=== PATIENT | female | born 1940 | race African-American/Black ===

== ENCOUNTER 2017-10-26 10:44 | Inpatient (IN) ==
[2017-10-26] MEDS ORDERED: Sodium Chlor 0.9% Inj 500 ML IV.SIG ONE ×3 (11:22→12:24)
[2017-10-26 11:31] LABS: Baso % (Auto) 0.1 % (0.0-2.0); Eos % (Auto) 0.2 % (0.0-4.0); Hemoglobin 12.6 gm/dL (11.6-15.3); Lymph # (Auto) 0.9 th/mm3 (1.0-4.8); Lymph % (Auto) 4.7 % (9.0-44.0); Mean Corpuscular HGB Conc 32.4 % (32.0-36.0); Mean Corpuscular Hemoglobin 29.5 pg (27.0-34.0); Mean Platelet Volume 8.5 fL (7.0-11.0); Mono # (Auto) 1.1 th/mm3 (0.0-0.9); Mono % (Auto) 5.7 % (0.0-8.0); Neut # (Auto) 17.1 th/mm3 (1.8-7.7); Neut % (Auto) 89.3 % (16.0-70.0); Platelet Count 115 th/mm3 (150-450); Red Blood Count 4.29 mil/mm3 (4.00-5.30); Red Cell Distribution Width 15.3 % (11.6-17.2); White Blood Count 19.2 th/mm3 (4.0-11.0)
--- NOTE | 2017-10-26 11:31 | ED ---
HPI General Chief Complaint: Altered Mental Status Stated Complaint: Blood Sugar Time Seen by Provider: 10/26/17 11:14 Source: EMS, RN notes reviewed and old records reviewed Mode of arrival: EMS Limitations: altered mental status History of Present Illness HPI narrative: 77 yo female here for AMS. Related Data Allergies Allergy/AdvReac Type Severity Reaction Status Date / Time No Known Allergies Allergy Severe Uncoded 01/30/09 15:54 PMFSH Medical History Medical History Anemia (Acute) Contracture, left elbow (Acute) Dementia (Acute) Diabetes (Acute) Renal disease (Acute) Stroke (Acute) UTI (urinary tract infection) (Acute) Social History Social History Substance History: Unable to Obtain Second Hand Smoke Exposure: No Smoking Status: Unknown if ever smoked How Often Do You Have a Drink Containing Alcohol: Unable to Obtain Recent Travel in [place] within the Last 8 Weeks: No Recent Out of Country Travel within the Last 8 Weeks: No Immunization History Tetanus Immunization: Unsure Hx Influenza Vaccine This Season: Unable to Assess Course Initial Documented Vital Signs Temperature 97.9 F 10/26/17 10:58 Pulse Rate 99 H 10/26/17 10:58 Respiratory Rate 18 10/26/17 10:58 Blood Pressure 159/92 H 10/26/17 10:58 Pulse Oximetry 96 10/26/17 10:58 Last Documented Vital Signs Temperature 97.9 F 10/26/17 11:04 Pulse Rate 98 H 10/26/17 11:04 Respiratory Rate 18 10/26/17 11:08 Blood Pressure 153/72 H 10/26/17 11:04 Pulse Oximetry 96 10/26/17 11:28 Medical Decision Making Lab Data Result diagrams: 10/26/17 11:13 10/26/17 11:13 Discharge Plan Physicians Team ED Provider: Margaret Mcmahan ED Midlevel Provider: Mark Arrington Status ED Status: With Doctor
[2017-10-26 11:32] LABS: Bacteria,Urine Many /hpf; Bilirubin,Urine Negative (Negative); Clarity,Urine Turbid (Clear); Color,Urine Amber (Yellw/Straw); Glucose,Urine (UA) 500 or Greater mg/dL (Negative); Leukocyte Esterase,Urine Large (Negative); Mucus,Urine Many /lpf (Occasional); Nitrite,Urine Negative (Negative); Specific Gravity,Urine 1.016 (1.002-1.035); Squamous Epithelial Cell,Urine 2 /hpf (0-5)
[2017-10-26 11:42] LABS: INR 1.1 Ratio; Prothrombin Time 11.4 sec (9.8-11.6)
[2017-10-26 11:57] LABS: Alanine Aminotransferase 19 U/L (10-53); Albumin 2.6 g/dL (3.4-5.0); Anion Gap 7 meq/L (5-15); Aspartate Aminotransferase 10 U/L (15-37); Blood Urea Nitrogen 60 mg/dL (7-18); Calcium 9.4 mg/dL (8.5-10.1); Carbon Dioxide 26.6 meq/L (21.0-32.0); Chloride 112 meq/L (98-107); Glomerular Filtration Rate 13 mL/min (>89); Sodium 146 meq/L (136-145)
[2017-10-26 12:06] LABS: Alkaline Phosphatase 117 U/L (45-117); Total Protein 7.1 g/dL (6.4-8.2)
[2017-10-26 12:13] LABS: Glucose,Random 536 mg/dL (74-106)
--- NOTE | 2017-10-26 12:23 | CT ---
EXAM DATE: 10/26/2017 12:17 PM EDT AGE/SEX: 77 years / Female INDICATIONS: Altered mental status not responding to light tactile stimuli CLINICAL DATA: This is the patient's initial encounter. Patient reports that signs and symptoms have been present for 1 day and indicates a pain score of Nonresponsive. MEDICAL/SURGICAL HISTORY: Anemia. Diabetes. Renal disease. Stroke dementia None. RADIATION DOSE: 39.77 CTDI (mGy) COMPARISON: No prior exams available for comparison. TECHNIQUE: CT of the head without contrast. Using automated exposure control and adjustment of the mA and/or kV according to patient size, radiation dose was kept as low as reasonably achievable to ob tain optimal diagnostic quality images. DICOM format image data is available electronically for revi ew and comparison. FINDINGS: Cerebrum: There is diffuse moderate atrophic change with sulcal and ventricular prominence. There is a large area of encephalomalacia involving the left middle cerebral artery territory with ex vacuo c hange and enlargement of the left lateral ventricle. No evidence of midline shift, mass lesion, hemor rhage or acute infarction. No extraaxial fluid collections are seen. Posterior Fossa: The cerebellum and brainstem are intact. The 4th ventricle is midline. The cerebe llopontine angle is unremarkable. Extracranial: The visualized portion of the orbits is intact. Skull: The calvaria is intact. No evidence of skull fracture. CONCLUSION: 1. Evidence of remote left middle cerebral artery territory infarction with large area of encephalom alacia. There is ex vacuo change involving the left lateral ventricle. 2. Moderate atrophic changes. 3. No definite acute hemorrhage, mass or infarction. . Electronically signed by: Vipin Wilson MD 10/26/2017 12:22 PM EDT
[2017-10-26] MEDS ORDERED: Piperacil/Tazo 3.375 GM Premix 50 ML IV.SIG ONE (12:24)
--- NOTE | 2017-10-26 12:37 | ED ---
HPI General Chief Complaint: Altered Mental Status Stated Complaint: Blood Sugar Time Seen by Provider: 10/26/17 11:14 Source: EMS, RN notes reviewed and old records reviewed Mode of arrival: EMS Limitations: altered mental status History of Present Illness HPI narrative: 77-year-old female presents by ambulance with initial GCS of 3. When the ambulance team got there her GCS was 12. Her baseline GCS is at this level per staff. Patient's blood sugar was critically high and she was given 10 units of regular insulin. Patient cannot provide me with any history as she is nonverbal. MD complaint: altered mental status Related Data Home Medications Medication Instructions Recorded Confirmed acetaminophen [Tylenol] 650 mg PO Q4H PRN 10/26/17 10/26/17 alum-mag hydroxide-simeth 30 ml PO Q4H PRN 10/26/17 10/26/17 atorvastatin [Lipitor] 20 mg PO HS 10/26/17 10/26/17 bisacodyl [Dulcolax (bisacodyl)] 10 mg [place] DAILY PRN 10/26/17 10/26/17 cranberry extract 1,000 mg PO DAILY 10/26/17 10/26/17 glucagon (human recombinant) 1 mg IM DIRECTED PRN 10/26/17 10/26/17 [Glucagon Emergency Kit (human)] guaifenesin 200 mg PO Q6HR PRN 10/26/17 10/26/17 insulin detemir U-100 [Levemir 35 unit SUB-Q HS 10/26/17 10/26/17 U-100 Insulin] lisinopril [Prinivil] 10 mg PO DAILY 10/26/17 10/26/17 loperamide 4 mg PO DIRECTED PRN 10/26/17 10/26/17 loperamide 4 mg PO DIRECTED PRN 10/26/17 10/26/17 magnesium hydroxide [Milk of 30 ml PO Q4HR PRN 10/26/17 10/26/17 Magnesia] memantine-donepezil [Namzaric] 1 cap PO QPM 10/26/17 10/26/17 mirtazapine [Remeron] 30 mg PO HS 10/26/17 10/26/17 [id number] 1 tab PO DAILY 10/26/17 10/26/17 [Theragran-M Premier 50 Plus] nut.tx.gluc.intol,lac-free,soy 1 can PO BID 10/26/17 10/26/17 [Glytrol] ondansetron HCl [Zofran] 4 mg PO TID PRN 10/26/17 10/26/17 sennosides-docusate sodium [Senna 2 tab PO BID 10/26/17 10/26/17 Plus] Allergies Allergy/AdvReac Type Severity Reaction Status Date / Time No Known Allergies Allergy Severe Uncoded 01/30/09 15:54 Review of Systems ROS Unobtainable ROS Unobtainable: unobtainable due to mental status [facility] Medical History Medical History Anemia (Acute) Contracture, left elbow (Acute) Dementia (Acute) Diabetes (Acute) Renal disease (Acute) Stroke (Acute) UTI (urinary tract infection) (Acute) Social History Social History Substance History: Unable to Obtain Second Hand Smoke Exposure: No Smoking Status: Unknown if ever smoked How Often Do You Have a Drink Containing Alcohol: Unable to Obtain Recent Travel in [place] within the Last 8 Weeks: No Recent Out of Country Travel within the Last 8 Weeks: No Immunization History Tetanus Immunization: Unsure Hx Influenza Vaccine This Season: Unable to Assess Exam Narrative Exam Narrative: GENERAL: 77-year-old female in no apparent distress SKIN: Focused skin assessment warm/dry. HEAD: Atraumatic. Normocephalic. EYES: Pupils equal and round. No scleral icterus. No injection or drainage. ENT: No nasal bleeding or discharge. Mucous membranes pink and moist. NECK: Trachea midline. CARDIOVASCULAR: Regular rate and rhythm. RESPIRATORY: No accessory muscle use. Clear to auscultation. Breath sounds equal bilaterally. GASTROINTESTINAL: Abdomen soft, mild diffusely tender, nondistended. MUSCULOSKELETAL: No obvious deformities. NEUROLOGICAL: Awake. eyes open, prior weakness noted, non-verbal Course Reevaluation(s) Reevaluation #1: Given UTI with renal failure an elevated white count lactate and CT abdomen were added on and antibiotics were broadened to include Zosyn. Reevaluation #2: Given elevated lactate and renal failure patient was given additional IV fluids. Daughter is at bedside and updated. She states that patient is full code and helps supplement more history. 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 She agrees to plan of care. She states she had a prior UTI about 2 years ago where she had to be in the ICU. Consultations Consultation #1: Resident team agrees to admission Initial Documented Vital Signs Temperature 97.9 F 10/26/17 10:58 Pulse Rate 99 H 10/26/17 10:58 Respiratory Rate 18 10/26/17 10:58 Blood Pressure 159/92 H 10/26/17 10:58 Pulse Oximetry 96 10/26/17 10:58 Last Documented Vital Signs Temperature 97.9 F 10/26/17 11:04 Pulse Rate 98 H 10/26/17 11:04 Respiratory Rate 18 10/26/17 11:08 Blood Pressure 153/72 H 10/26/17 11:04 Pulse Oximetry 96 10/26/17 11:28 Medical Decision Making MDM Narrative Medical decision making narrative: Will check blood work, urinalysis, imaging and reevaluate. With UTI will give Rocephin Differential Diagnosis Differential Diagnosis: Sepsis, UTI, pneumonia, intracranial, electrolyte Lab Data Lab results reviewed: Yes I reviewed the patient's lab results. Result diagrams: 10/26/17 11:13 10/26/17 11:13 Lab Results 10/26/17 10/26/17 10/26/17 Range/Units 11:13 11:13 11:13 WBC 19.2 H (4.0-11.0) th/mm3 RBC 4.29 (4.00-5.30) mil/mm3 Hgb 12.6 (11.6-15.3) gm/dL Hct 39.0 (35.0-46.0) % MCV 91.0 (80.0-100.0) fL MCH 29.5 (27.0-34.0) pg MCHC 32.4 (32.0-36.0) % RDW 15.3 (11.6-17.2) % Plt Count 115 L (150-450) th/mm3 MPV 8.5 (7.0-11.0) fL Neut % (Auto) 89.3 H (16.0-70.0) % Lymph % (Auto) 4.7 L (9.0-44.0) % [place] % (Auto) 5.7 (0.0-8.0) % Eos % (Auto) 0.2 (0.0-4.0) % Baso % (Auto) 0.1 (0.0-2.0) % Neut # (Auto) 17.1 H (1.8-7.7) th/mm3 Lymph # (Auto) 0.9 L (1.0-4.8) th/mm3 [place] # (Auto) 1.1 H (0.0-0.9) th/mm3 Eos # (Auto) 0.0 (0.0-0.4) th/mm3 Baso # (Auto) 0.0 (0.0-0.2) th/mm3 WBC Differential . Differential Comment Auto diff final PT 11.4 (9.8-11.6) sec INR 1.1 Ratio Sodium 146 H (136-145) meq/L Potassium 4.0 (3.5-5.1) meq/L Chloride 112 H (98-107) meq/L Carbon Dioxide 26.6 (21.0-32.0) meq/L Anion Gap 7 (5-15) meq/L BUN 60 H (7-18) mg/dL Creatinine 3.95 H (0.50-1.00) mg/dL Estimated GFR 13 L (>89) mL/min Random Glucose 536 H* (74-106) mg/dL Lactic Acid (0.4-2.0) mmol/L Calcium 9.4 (8.5-10.1) mg/dL Total Bilirubin 0.5 (0.2-1.0) mg/dL AST 10 L (15-37) U/L ALT 19 (10-53) U/L Alkaline Phosphatase 117 (45-117) U/L Total Protein 7.1 (6.4-8.2) g/dL Albumin 2.6 L (3.4-5.0) g/dL Urine Color (Yellw/Straw) Urine Clarity (Clear) Urine pH (5.0-8.5) Ur Specific [place] (1.002-1.035) Urine Protein (Neg-Trace) mg/dL Urine Glucose (UA) (Negative) mg/dL Urine Ketones (Negative) mg/dL Urine Occult Blood (Negative) Urine Nitrate (Negative) Urine Bilirubin (Negative) Urine Urobilinogen (Less than 2) mg/dL Ur Leukocyte Esterase (Negative) Urine RBC (0-3) /hpf Urine WBC (0-5) /hpf Urine WBC Clumps (None) Ur Squamous Epith Cells (0-5) /hpf Urine Bacteria (None) /hpf Urine Mucus (Occasional) /lpf Micro UA Comment Urine Culture Comments 10/26/17 10/26/17 Range/Units 11:13 11:50 WBC (4.0-11.0) th/mm3 RBC (4.00-5.30) mil/mm3 Hgb (11.6-15.3) gm/dL Hct (35.0-46.0) % MCV (80.0-100.0) fL MCH (27.0-34.0) pg MCHC (32.0-36.0) % RDW (11.6-17.2) % Plt Count (150-450) th/mm3 MPV (7.0-11.0) fL Neut % (Auto) (16.0-70.0) % Lymph % (Auto) (9.0-44.0) % [place] % (Auto) (0.0-8.0) % Eos % (Auto) (0.0-4.0) % Baso % (Auto) (0.0-2.0) % Neut # (Auto) (1.8-7.7) th/mm3 Lymph # (Auto) (1.0-4.8) th/mm3 [place] # (Auto) (0.0-0.9) th/mm3 Eos # (Auto) (0.0-0.4) th/mm3 Baso # (Auto) (0.0-0.2) th/mm3 WBC Differential Differential Comment PT (9.8-11.6) sec INR Ratio Sodium (136-145) meq/L Potassium (3.5-5.1) meq/L Chloride (98-107) meq/L Carbon Dioxide (21.0-32.0) meq/L Anion Gap (5-15) meq/L BUN (7-18) mg/dL Creatinine (0.50-1.00) mg/dL Estimated GFR (>89) mL/min Random Glucose (74-106) mg/dL Lactic Acid 2.7 H (0.4-2.0) mmol/L Calcium (8.5-10.1) mg/dL Total Bilirubin (0.2-1.0) mg/dL AST (15-37) U/L ALT (10-53) U/L Alkaline Phosphatase (45-117) U/L Total Protein (6.4-8.2) g/dL Albumin (3.4-5.0) g/dL Urine Color Neda (Yellw/Straw) Urine Clarity Turbid H (Clear) Urine pH 5.0 (5.0-8.5) Ur Specific [place] 1.016 (1.002-1.035) Urine Protein 30 H (Neg-Trace) mg/dL Urine Glucose (UA) 500 or greater (Negative) mg/dL Urine Ketones Negative (Negative) mg/dL Urine Occult Blood Large H (Negative) Urine Nitrate Negative (Negative) Urine Bilirubin Negative (Negative) Urine Urobilinogen Less than 2 (Less than 2) mg/dL Ur Leukocyte Esterase Large H (Negative) Urine RBC 19 H (0-3) /hpf Urine WBC (0-5) /hpf Urine WBC Clumps Occasional H (None) Ur Squamous Epith Cells 2 (0-5) /hpf Urine Bacteria Many H (None) /hpf Urine Mucus Many H (Occasional) /lpf Micro UA Comment Cath-culture ind Urine Culture Comments Cath-cult indicated Imaging Data Attestation: I personally reviewed and interpreted this imaging study as follows : Radiologist's impression: Head CT 10/26/17 11:08 CONCLUSION: 1. Evidence of remote left middle cerebral artery territory infarction with large area of encephalomalacia. There is ex vacuo change involving the left lateral ventricle. 2. Moderate atrophic changes. 3. No definite acute hemorrhage, mass or infarction. . Discharge Plan Discharge Disposition Patient Disposition: 30 Still Patient Discharge Details Diagnosis: Sepsis, Acute UTI, Acute renal failure, Hyperglycemia Physicians Team ED Provider: Margaret Mcmahan Primary Care Provider: Yisel Jones Clinical Attending Provider: Melvin Fox Status ED Status: Admitted Patient
--- NOTE | 2017-10-26 12:54 | P.HPFP ---
History of Present Illness Primary Care Physician: [facility] History of Present Illness: Patient 77-year-old female past history of CKD stage III, CVA, hemiplegia and hemiparesis, IDDM who presents today with altered mental status. Patient is nonverbal following her CVA 21 years ago. Her daughter was present to help provide information, information was also provided by the ED physician. She is found today in her fpc with what was reported to be a [place] Coma Scale of 3, sugar over 500, per EMS run report glucose was 595, 10 units of NovoLog was given in the fpc. She is also reported to have a UTI. She currently resides at [facility]. Her daughter reports that she has been unable to pee for an undetermined amount time, she has been in the ICU before for UTI. She was not eating yesterday. She is usually constipated, occasionally needs enemas. Sleeps well. Daughter reports is difficult to communicate with her mother, unable to discern any localized pain or other problems. History: Medical CKDIII HLD Anemia Hemiplegia and hemiparesis following infarction affecting nondominant side CVA DM, ID Surgical Left shoulder surgery, for a mass? Family Mother: bone cancer Father: mouth and throat cancer Social EtOH: none Smoking: none Drugs: none Lidia Fournier - daughter. - Diagnosis (1) Acute UTI (2) Sepsis (3) Acute kidney injury superimposed on CKD (4) Diabetes (5) Hyperglycemia (6) HTN (hypertension) (7) HLD (hyperlipidemia) Review of Systems other (Unable to obtain due to verbal status) [facility] - History History Provided By: Medical Record, Director Mortgage / EMT - Medical History Medical History: Medical History (Last Reviewed 10/26/17 @ 13:03 by Margaret Mcmahan MD) Anemia Contracture, left elbow Dementia Diabetes Renal disease Stroke UTI (urinary tract infection) - Tobacco History Second Hand Smoke Exposure: No Tobacco Use In Past 30 Days: No Smoking Status: Unknown if ever smoked - Alcohol History How Often Do You Have a Drink Containing Alcohol: Unable to Obtain - Substance Use History Substance History: Unable to Obtain - Travel History Recent Travel in the [place] Within the Last 8 Weeks: No Recent Travel Out of the Country Within the Last 8 Weeks: No - Immunization History Tetanus Immunization: Unsure Hx Influenza Vaccine This Season: Unable to Assess Medications and Allergies Active Medications: Active Medications Piperacillin/Tazobactam/Dextrose (Zosyn 3.375 Gm Premix) 50 mls @ 100 mls/hr IV.SIG ONCE ONE Stop: 10/26/17 12:53 Sodium Chloride (Ns Flush) 2 ml IV.FLUSH PRN PRN PRN Reason: FLUSH AFTER USING IV ACCESS Allergies Allergy/AdvReac Type Severity Reaction Status Date / Time No Known Allergies Allergy Severe Uncoded 01/30/09 15:54 Home Medications Medication Instructions Recorded Confirmed Type acetaminophen [Tylenol] 650 mg PO Q4H PRN 10/26/17 10/26/17 History alum-mag hydroxide-simeth 30 ml PO Q4H PRN 10/26/17 10/26/17 History atorvastatin [Lipitor] 20 mg PO HS 10/26/17 10/26/17 History bisacodyl [Dulcolax (bisacodyl)] 10 mg [place] DAILY PRN 10/26/17 10/26/17 History cranberry extract 1,000 mg PO DAILY 10/26/17 10/26/17 History glucagon (human recombinant) 1 mg IM DIRECTED PRN 10/26/17 10/26/17 History [Glucagon Emergency Kit (human)] guaifenesin 200 mg PO Q6HR PRN 10/26/17 10/26/17 History insulin detemir U-100 [Levemir 35 unit SUB-Q HS 10/26/17 10/26/17 History U-100 Insulin] lisinopril [Prinivil] 10 mg PO DAILY 10/26/17 10/26/17 History loperamide 4 mg PO DIRECTED PRN 10/26/17 10/26/17 History loperamide 4 mg PO DIRECTED PRN 10/26/17 10/26/17 History magnesium hydroxide [Milk of 30 ml PO Q4HR PRN 10/26/17 10/26/17 History Magnesia] memantine-donepezil [Namzaric] 1 cap PO QPM 10/26/17 10/26/17 History mirtazapine [Remeron] 30 mg PO HS 10/26/17 10/26/17 History [id number] 1 tab PO DAILY 10/26/17 10/26/17 History [Theragran-M Premier 50 Plus] nut.tx.gluc.intol,lac-free,soy 1 can PO BID 10/26/17 10/26/17 History [Glytrol] ondansetron HCl [Zofran] 4 mg PO TID PRN 10/26/17 10/26/17 History sennosides-docusate sodium [Senna 2 tab PO BID 10/26/17 10/26/17 History Plus] Exam Vital signs: Vital Signs 10/26/17 10:58 10/26/17 11:04 10/26/17 11:08 Temperature 97.9 F 97.9 F Pulse Rate 99 H 98 H Respiratory Rate Blood Pressure 159/92 H 153/72 H Pulse Oximetry 96 95 10/26/17 11:28 Temperature Pulse Rate Respiratory Rate Blood Pressure Pulse Oximetry 96 Intake & Output 10/25/17 10/26/17 10/26/17 18:59 06:59 18:59 Weight 65.771 kg Narrative: GENERAL: Laying in bed, no acute distress, responds "ouch" any time you touch her SKIN: Warm and dry. HEAD: Atraumatic. Normocephalic. EYES: Pupils equal and round. No scleral icterus. No injection or drainage. ENT: No nasal bleeding or discharge. Mucous membranes pink and moist. NECK: Trachea midline. No JVD. CARDIOVASCULAR: Regular rate and rhythm. RESPIRATORY: No accessory muscle use. Clear to auscultation. Breath sounds equal bilaterally. GASTROINTESTINAL: Abdomen soft, non-tender, nondistended. Hepatic and splenic margins not palpable. MUSCULOSKELETAL: Extremities without clubbing, cyanosis, or edema. No obvious deformities. NEUROLOGICAL: Awake and alert. No obvious cranial nerve deficits. Motor grossly within normal limits. Five out of 5 muscle strength in the arms and legs. Normal speech. PSYCHIATRIC: Nonverbal, does not communicate, baseline according to daughter Results - Labs Result diagrams: 10/26/17 11:13 10/26/17 11:13 Abnormal lab results 10/26/17 10/26/17 10/26/17 Range/Units 11:13 11:13 11:13 WBC 19.2 H (4.0-11.0) th/mm3 Plt Count 115 L (150-450) th/mm3 Neut % (Auto) 89.3 H (16.0-70.0) % Lymph % (Auto) 4.7 L (9.0-44.0) % Neut # (Auto) 17.1 H (1.8-7.7) th/mm3 Lymph # (Auto) 0.9 L (1.0-4.8) th/mm3 [place] # (Auto) 1.1 H (0.0-0.9) th/mm3 Sodium 146 H (136-145) meq/L Chloride 112 H (98-107) meq/L BUN 60 H (7-18) mg/dL Creatinine 3.95 H (0.50-1.00) mg/dL Estimated GFR 13 L (>89) mL/min Random Glucose 536 H* (74-106) mg/dL Lactic Acid (0.4-2.0) mmol/L AST 10 L (15-37) U/L Albumin 2.6 L (3.4-5.0) g/dL Urine Clarity Turbid H (Clear) Urine Protein 30 H (Neg-Trace) mg/dL Urine Occult Blood Large H (Negative) Ur Leukocyte Esterase Large H (Negative) Urine RBC 19 H (0-3) /hpf Urine WBC Clumps Occasional H (None) Urine Bacteria Many H (None) /hpf Urine Mucus Many H (Occasional) /lpf 10/26/17 Range/Units 11:50 WBC (4.0-11.0) th/mm3 Plt Count (150-450) th/mm3 Neut % (Auto) (16.0-70.0) % Lymph % (Auto) (9.0-44.0) % Neut # (Auto) (1.8-7.7) th/mm3 Lymph # (Auto) (1.0-4.8) th/mm3 [place] # (Auto) (0.0-0.9) th/mm3 Sodium (136-145) meq/L Chloride (98-107) meq/L BUN (7-18) mg/dL Creatinine (0.50-1.00) mg/dL Estimated GFR (>89) mL/min Random Glucose (74-106) mg/dL Lactic Acid 2.7 H (0.4-2.0) mmol/L AST (15-37) U/L Albumin (3.4-5.0) g/dL Urine Clarity (Clear) Urine Protein (Neg-Trace) mg/dL Urine Occult Blood (Negative) Ur Leukocyte Esterase (Negative) Urine RBC (0-3) /hpf Urine WBC Clumps (None) Urine Bacteria (None) /hpf Urine Mucus (Occasional) /lpf Short CBC 10/26/17 Range/Units 11:13 WBC 19.2 H (4.0-11.0) th/mm3 Hgb 12.6 (11.6-15.3) gm/dL Hct 39.0 (35.0-46.0) % Plt Count 115 L (150-450) th/mm3 BMP 10/26/17 11:13 Sodium 146 H Potassium 4.0 Chloride 112 H Carbon Dioxide 26.6 BUN 60 H Creatinine 3.95 H Calcium 9.4 Liver Function 10/26/17 Range/Units 11:13 Total Bilirubin 0.5 (0.2-1.0) mg/dL AST 10 L (15-37) U/L ALT 19 (10-53) U/L Alkaline Phosphatase 117 (45-117) U/L Albumin 2.6 L (3.4-5.0) g/dL Urine 10/26/17 Range/Units 11:13 Urine Color Neda (Yellw/Straw) Urine Clarity Turbid H (Clear) Urine pH 5.0 (5.0-8.5) Ur Specific [place] 1.016 (1.002-1.035) Urine Protein 30 H (Neg-Trace) mg/dL Urine Glucose (UA) 500 or greater (Negative) mg/dL - Imaging Impressions Head CT 10/26/17 11:08 CONCLUSION: 1. Evidence of remote left middle cerebral artery territory infarction with large area of encephalomalacia. There is ex vacuo change involving the left lateral ventricle. 2. Moderate atrophic changes. 3. No definite acute hemorrhage, mass or infarction. . Caprini VTE Risk Assessment Caprini VTE Risk Assessment: Moderate/High Risk (score >= 2) Assessment and Plan - Assessment (1) Acute UTI Code(s): N39.0 - Urinary tract infection, site not specified Status: Acute Plan: Patient with altered mental status prior to being admitted. UTI on UA. Start on Rocephin in the ED, changed to Zosyn. -follow-up urine culture -Continue Zosyn -Follow-up abdominal CT for stones and blockage (2) Sepsis Code(s): A41.9 - Sepsis, unspecified organism Status: Acute Plan: Patient presented in sepsis. UTI likely source. Rocephin and Zosyn administered in ER prior to culture gathered See plan for UTI -Follow-up cultures (3) Acute kidney injury superimposed on CKD Code(s): N17.9 - Acute kidney failure, unspecified; N18.9 - Chronic kidney disease, unspecified Status: Acute Plan: History of stage III CKD. On admission creatinine 3.95, GFR 13, likely [place] I superimposed on CKD. -1 L bolus -Continue fluids as above -Follow-up BMP tomorrow (4) Diabetes Code(s): E11.9 - Type 2 diabetes mellitus without complications Status: Acute Plan: History of diabetes. Admitted with glucose 536. Given 10 units of insulin subQ upon admission, 10 units while still in fpc. Improved to 370. -Fluids 1 25 mL/h -Sliding scale subQ insulin - (5) Hyperglycemia Code(s): R73.9 - Hyperglycemia, unspecified Status: Acute Plan: Admitted with glucose greater than 500. 10 units short acting insulin at fpc, 10 units while in ED. -Follow-up plan for diabetes above (6) HTN (hypertension) Code(s): I10 - Essential (primary) hypertension Status: Acute Plan: History of hypertension -Continue lisinopril 10 mg daily (7) HLD (hyperlipidemia) Code(s): E78.5 - Hyperlipidemia, unspecified Status: Acute Plan: History of hyperlipidemia -Continue atorvastatin 20 mg p.o. daily (2) Sepsis Qualifiers: Sepsis type: sepsis due to unspecified organism Qualified Code(s): A41.9 - Sepsis, unspecified organism
[2017-10-26] MEDS ORDERED: Acetaminophen 325 MG Tablet PO PRN (13:23)
[2017-10-26] MEDS ORDERED: Bisacodyl 10 MG Supp RECTAL PRN ×2 (13:23→16:05)
[2017-10-26] MEDS ORDERED: Sod Chloride 0.9% Inj 1,000 ML IV.SIG ONE (13:27)
[2017-10-26] MEDS ORDERED: Dextrose 50% in Water 50 ML Vial IV.PUSH PRN (13:29)
--- NOTE | 2017-10-26 13:44 | XR ---
EXAM DATE: 10/26/2017 1:36 PM EDT AGE/SEX: 77 years / Female INDICATIONS: Chest pain. CLINICAL DATA: This is the patient's initial encounter. Patient reports that signs and symptoms have been present for 1 day and indicates a pain score of 3/10. MEDICAL/SURGICAL HISTORY: . Anemia. Diabetes. Renal disease. Stroke dementia. None. COMPARISON: No prior exams available for comparison. FINDINGS: A single AP view of the chest demonstrates the lungs to be symmetrically aerated without evidence of mass, infiltrate or effusion. The cardiomediastinal contours are unremarkable. Osseous structures a re intact. CONCLUSION: No acute cardiac pulmonary disease. Electronically signed by: Rupert Green MD 10/26/2017 1:43 PM EDT
--- NOTE | 2017-10-26 14:23 | CT ---
EXAM DATE: 10/26/2017 1:58 PM EDT AGE/SEX: 77 years / Female INDICATIONS: Abdominal pain, evaluate for calculi. CLINICAL DATA: This is the patient's initial encounter. Patient reports that signs and symptoms have been present for 1 day and indicates a pain score of 4/10. MEDICAL/SURGICAL HISTORY: Renal disease. Diabetes. Cerebrovascular disease. anemia, dementia None. RADIATION DOSE: 19.19 CTDI (mGy) COMPARISON: No prior exams available for comparison. TECHNIQUE: Multiple contiguous axial images were obtained through the abdomen. Images were obtained using multiple row detector helical technique. Using automated exposure control and adjustment of the mA and/or kV according to patient size, radiation dose was kept as low as reasonably achievable to o btain optimal diagnostic quality images. DICOM format image data is available electronically for rev iew and comparison. FINDINGS: An approximately 15 mm conglomerate of stone fragments is seen in the region of the right ureterovesi suresh junction. There is mild to moderate right hydronephrosis and hydroureter. Numerous stones are see n of the right kidney, including a 31 mm stone of the upper pole 14 mm stone of the mid zone, [address] one in the pelvis and 8 mm stone of the lower pole. No stones or obstructive uropathy seen on the lef t. Noncontrast appearance of the visualized liver, spleen, pancreas and right adrenal gland within choco l limits. There is a 17 mm nodule of the left adrenal gland with Hounsfield units not clearly consist ent with adenoma No obstruction or acute inflammatory changes seen of the gastrointestinal tract. No free fluid or pete e air. No lymphadenopathy. There is a small hiatal hernia.. Mild bibasilar atelectasis. CONCLUSION: 1. A conglomerate of calculi seen of the right ureterovesical junction and causing mild to moderate hydronephrosis and hydroureter. Numerous nonobstructing stones are seen of the right kidney itself, i ncluding a very large stone of the upper pole. 2. 17 mm nodule left adrenal gland, nonspecific but statistically is most likely a lipid poor adenom a. If there are any pertinent previous outside facility studies comparison to ensure chronicity is re commended. If there are no pertinent priors, abdomen MRI suggested. 3. Mild atelectasis of the visualized lung bases. 4. Small hiatal hernia. Electronically signed by: Daniel Mota MD 10/26/2017 2:21 PM EDT
[2017-10-26] MEDS: Sod Chloride 0.9% Inj 1,000 ML IV.CONT SCH ×2 (14:25→22:00)
[2017-10-26] MEDS: Heparin - SQ 10,000 UNITS/ML Vial SQ SCH (14:25)
[2017-10-26] MEDS: Insulin NovoLOG Aspart Correctional Sugar Inj SQ SCH ×2 (17:44→22:00)
[2017-10-26] MEDS ORDERED: MEMANTINE DONEPEZIL PO SCH (18:00)
[2017-10-26] MEDS ORDERED: DONEPEZIL PO SCH (19:30)
[2017-10-26] MEDS ORDERED: MEMANTINE PO SCH (19:30)
[2017-10-26] MEDS: Piperacil/Tazo 2.25 GM Premix 50 ML IV.SIG SCH (19:55)
--- NOTE | 2017-10-26 21:41 | ECG ---
Date Performed: 10/26/2017 Time Performed: 11:16:25 PTAGE: 77 years EKG: Sinus rhythm ARM LEADS REVERSED ATYPICAL ECG WARNING: DATA QUALITY MAY AFFECT INTERPRETATION PREVIOUS TRACING : 09/25/2007 13.10 Since the previous tracing, no significant change not ed DOCTOR: Savannah Cuevas Interpretating Date/Time 10/26/2017 21:40:34
[2017-10-26] MEDS: Senna/Docusate Sodium 8.6/50 MG Tablet PO SCH (22:00)
[2017-10-26] MEDS: Mirtazapine 15 MG Tablet PO SCH (22:00)
[2017-10-27] MEDS: Heparin - SQ 10,000 UNITS/ML Vial SQ SCH ×2 (02:14→13:06)
[2017-10-27] MEDS: Piperacil/Tazo 2.25 GM Premix 50 ML IV.SIG SCH ×3 (03:10→23:17)
[2017-10-27] MEDS: Sod Chloride 0.9% Inj 1,000 ML IV.CONT SCH ×3 (05:08→23:18)
[2017-10-27] MEDS: Insulin NovoLOG Aspart Correctional Sugar Inj SQ SCH ×4 (07:55→22:11)
[2017-10-27] MEDS: Lisinopril 10 MG Tablet PO SCH (08:59)
[2017-10-27] MEDS: Senna/Docusate Sodium 8.6/50 MG Tablet PO SCH ×2 (09:00→23:17)
--- NOTE | 2017-10-27 09:04 | P.CONURO ---
History of Present Illness Service: Urology Consult date: 10/27/17 Requesting Physician: Margaret Mcmahan Reason for Consult: Right renal and ureteral calculi Primary Care Provider: [facility] Chief Complaint: Altered mental status History of Present Illness: 77-year-old nonverbal female with multiple medical problems including insulin- dependent diabetes mellitus, chronic kidney disease stage III and CVA history who was admitted with altered mental status and noted to be markedly hyperglycemic. Preliminary workup included a UA consistent with urinary tract infection along with a CT scan of the abdomen and pelvis that demonstrated multiple nonobstructing right renal calculi with the largest just over 3 cm involving the upper pole as well as several small distal right ureteral stones with associated mild to moderate hydronephrosis. A urology consult was placed regarding further recommendations regarding the stones. At the time of consultation the patient appeared alert but was nonverbal. When questioned about pain she shook her head no. I reviewed the actual CT scan images and concur with the radiologist impression. PMF - History History Provided By: Medical Record, Compensation Advisor / EMT - Medical History Medical History: Medical History (Last Reviewed 10/26/17 @ 13:03 by Margaret Mcmahan MD) Anemia Contracture, left elbow Dementia Diabetes Renal disease Stroke UTI (urinary tract infection) - Tobacco History Second Hand Smoke Exposure: No Tobacco Use In Past 30 Days: No Smoking Status: Unknown if ever smoked - Alcohol History How Often Do You Have a Drink Containing Alcohol: Unable to Obtain - Substance Use History Substance History: Unable to Obtain - Travel History Recent Travel in the [place] Within the Last 8 Weeks: No Recent Travel Out of the Country Within the Last 8 Weeks: No - Immunization History Tetanus Immunization: Unsure Hx Influenza Vaccine This Season: Unable to Assess Medications and Allergies Active Medications: Active Medications Acetaminophen (Tylenol) 650 mg PO Q4H PRN PRN Reason: Temp > 100.4 Al Hydroxide/Mg Hydroxide (Milk Of Magnesia Liq) 30 ml PO Q12H PRN PRN Reason: Mild Constipation Atorvastatin Calcium (Lipitor) 20 mg PO HS [facility] Last Admin: 10/26/17 22:00 Dose: 20 mg Bisacodyl (Dulcolax Supp) 10 mg RECTAL DAILY PRN PRN Reason: If no results from Milk of Mag Dextrose (D50w Vial) 50 ml IV.PUSH UNSCH PRN PRN Reason: PER HYPOGLYCEMIA PROTOCOL Glucagon (Glucagon Inj) 1 mg OTHER PRN PRN PRN Reason: for Hypoglycemia Protocol Heparin Sodium (Porcine) (Heparin Inj) 5,000 units SQ Q12H [facility] Last Admin: 10/27/17 02:14 Dose: 5,000 units Sodium Chloride (Ns Inj) 1,000 mls @ 125 mls/hr IV.CONT .Q8H [facility] Last Admin: 10/27/17 05:08 Dose: 125 mls/hr Piperacillin/Tazobactam/Dextrose (Zosyn 2.25 Gm Premix) 50 mls @ 100 mls/hr IV.SIG Q8H [facility] Last Infusion: 10/27/17 03:40 Dose: Infused Insulin Aspart (Novolog Insulin Correctional Sugar Inj) 0 unit SQ ACHS [facility]; Protocol Last Admin: 10/27/17 07:55 Dose: Not Given Lactulose (Lactulose Liq) 30 ml PO DAILY PRN PRN Reason: SEVERE CONSITIPATION Lisinopril (Prinivil) 10 mg PO DAILY [facility] Last Admin: 10/27/17 08:59 Dose: 10 mg Mirtazapine (Remeron) 30 mg PO [facility] Last Admin: 10/26/17 22:00 Dose: 30 mg Ondansetron HCl (Zofran Inj) 4 mg IV.PUSH Q6H PRN PRN Reason: NAUSEA OR VOMITING Patient Own: ( Memantine-Donepezil 14/01 E.R.[Namzaric] 1 Cap) 0 each PO QPM [facility] Senna/Docusate Sodium (Katina-Colace) 1 tab PO BID [facility] Last Admin: 10/27/17 09:00 Dose: Not Given Sennosides (Senokot) 17.2 mg PO Q12H PRN PRN Reason: Moderate Constipation Sodium Chloride (Ns Flush) 2 ml IV.FLUSH PRN PRN PRN Reason: FLUSH AFTER USING IV ACCESS Allergies Allergy/AdvReac Type Severity Reaction Status Date / Time No Known Allergies Allergy Severe Uncoded 01/30/09 15:54 Home Medications Medication Instructions Recorded Confirmed Type acetaminophen [Tylenol] 650 mg PO Q4H PRN 10/26/17 10/26/17 History alum-mag hydroxide-simeth 30 ml PO Q4H PRN 10/26/17 10/26/17 History atorvastatin [Lipitor] 20 mg PO HS 10/26/17 10/26/17 History bisacodyl [Dulcolax (bisacodyl)] 10 mg [place] DAILY PRN 10/26/17 10/26/17 History cranberry extract 1,000 mg PO DAILY 10/26/17 10/26/17 History glucagon (human recombinant) 1 mg IM DIRECTED PRN 10/26/17 10/26/17 History [Glucagon Emergency Kit (human)] guaifenesin 200 mg PO Q6HR PRN 10/26/17 10/26/17 History insulin detemir U-100 [Levemir 35 unit SUB-Q HS 10/26/17 10/26/17 History U-100 Insulin] lisinopril [Prinivil] 10 mg PO DAILY 10/26/17 10/26/17 History loperamide 4 mg PO DIRECTED PRN 10/26/17 10/26/17 History loperamide 4 mg PO DIRECTED PRN 10/26/17 10/26/17 History magnesium hydroxide [Milk of 30 ml PO Q4HR PRN 10/26/17 10/26/17 History Magnesia] memantine-donepezil [Namzaric] 1 cap PO QPM 10/26/17 10/26/17 History mirtazapine [Remeron] 30 mg PO HS 10/26/17 10/26/17 History [id number]-[id number]-[id number] 1 tab PO DAILY 10/26/17 10/26/17 History [Theragran-M Premier 50 Plus] nut.tx.gluc.intol,lac-free,soy 1 can PO BID 10/26/17 10/26/17 History [Glytrol] ondansetron HCl [Zofran] 4 mg PO TID PRN 10/26/17 10/26/17 History sennosides-docusate sodium [Senna 2 tab PO BID 10/26/17 10/26/17 History Plus] Physical Exam Vital Signs - 24 hr 10/26/17 10:58 10/26/17 11:04 10/26/17 11:08 Temperature 97.9 F 97.9 F Pulse Rate 99 H 98 H Respiratory Rate 18 18 Blood Pressure 159/92 H 153/72 H Pulse Oximetry 96 95 10/26/17 11:28 10/26/17 14:15 10/26/17 17:44 Temperature Pulse Rate 84 76 Respiratory Rate 18 18 Blood Pressure 139/65 122/69 Pulse Oximetry 96 97 10/26/17 19:10 10/26/17 22:00 10/27/17 03:05 Temperature Pulse Rate 76 96 H 79 Respiratory Rate 16 22 20 Blood Pressure 102/59 L 127/73 130/60 Pulse Oximetry 97 95 95 10/27/17 05:09 10/27/17 07:04 10/27/17 07:30 Temperature Pulse Rate 76 77 Respiratory Rate 18 16 18 Blood Pressure 146/70 H 157/101 H Pulse Oximetry 95 10/27/17 08:38 Temperature Pulse Rate 73 Respiratory Rate 18 Blood Pressure 160/69 H Pulse Oximetry 97 Physical Exam: GENERAL: Nonverbal elderly female in no apparent distress. SKIN: No rashes, ecchymoses or lesions. Cool and dry. HEAD: Atraumatic. Normocephalic. No temporal or scalp tenderness. EYES: Pupils equal round and reactive. Extraocular motions intact. No scleral icterus. No injection or drainage. ENT: Nose without bleeding, purulent drainage or septal hematoma. Throat without erythema, tonsillar hypertrophy or exudate. Uvula midline. Airway patent. NECK: Trachea midline. No JVD or lymphadenopathy. Supple, nontender, no meningeal signs. GASTROINTESTINAL: Abdomen soft, non-tender, nondistended. No hepato-splenomegaly , or palpable masses. No guarding. GENITOURINARY: No CVA tenderness MUSCULOSKELETAL: Extremities without clubbing, cyanosis, or edema. No joint tenderness, effusion, or edema noted. No calf tenderness. Negative Homans sign bilaterally. NEUROLOGICAL: Awake but nonverbal. Seems confused but responsive to questioning. Laboratory Results - last 24 hr 10/26/17 10/26/17 10/26/17 11:13 11:13 11:13 WBC 19.2 H RBC 4.29 Hgb 12.6 Hct 39.0 MCV 91.0 MCH 29.5 MCHC 32.4 RDW 15.3 Plt Count 115 L MPV 8.5 Neut % (Auto) 89.3 H Lymph % (Auto) 4.7 L [place] % (Auto) 5.7 Eos % (Auto) 0.2 Baso % (Auto) 0.1 Neut # (Auto) 17.1 H Lymph # (Auto) 0.9 L [place] # (Auto) 1.1 H Eos # (Auto) 0.0 Baso # (Auto) 0.0 WBC Differential . Differential Comment Auto diff final PT 11.4 INR 1.1 Sodium 146 H Potassium 4.0 Chloride 112 H Carbon Dioxide 26.6 Anion Gap 7 BUN 60 H Creatinine 3.95 H Estimated GFR 13 L POC Glucose Random Glucose 536 H* Lactic Acid Calcium 9.4 Total Bilirubin 0.5 AST 10 L ALT 19 Alkaline Phosphatase 117 Total Protein 7.1 Albumin 2.6 L Urine Color Urine Clarity Urine pH Ur Specific [place] Urine Protein Urine Glucose (UA) Urine Ketones Urine Occult Blood Urine Nitrate Urine Bilirubin Urine Urobilinogen Ur Leukocyte Esterase Urine RBC Urine WBC Urine WBC Clumps Ur Squamous Epith Cells Urine Bacteria Urine Mucus Micro UA Comment Urine Culture Comments 10/26/17 10/26/17 10/26/17 11:13 11:50 14:11 WBC RBC Hgb Hct MCV MCH MCHC RDW Plt Count MPV Neut % (Auto) Lymph % (Auto) [place] % (Auto) Eos % (Auto) Baso % (Auto) Neut # (Auto) Lymph # (Auto) [place] # (Auto) Eos # (Auto) Baso # (Auto) WBC Differential Differential Comment PT INR Sodium Potassium Chloride Carbon Dioxide Anion Gap BUN Creatinine Estimated GFR POC Glucose 370 H Random Glucose Lactic Acid 2.7 H Calcium Total Bilirubin AST ALT Alkaline Phosphatase Total Protein Albumin Urine Color Neda Urine Clarity Turbid H Urine pH 5.0 Ur Specific [place] 1.016 Urine Protein 30 H Urine Glucose (UA) 500 or greater Urine Ketones Negative Urine Occult Blood Large H Urine Nitrate Negative Urine Bilirubin Negative Urine Urobilinogen Less than 2 Ur Leukocyte Esterase Large H Urine RBC 19 H Urine WBC Urine WBC Clumps Occasional H Ur Squamous Epith Cells 2 Urine Bacteria Many H Urine Mucus Many H Micro UA Comment Cath-culture ind Urine Culture Comments Cath-cult indicated 10/26/17 10/26/17 10/26/17 16:50 19:16 21:37 WBC RBC Hgb Hct MCV MCH MCHC RDW Plt Count MPV Neut % (Auto) Lymph % (Auto) [place] % (Auto) Eos % (Auto) Baso % (Auto) Neut # (Auto) Lymph # (Auto) [place] # (Auto) Eos # (Auto) Baso # (Auto) WBC Differential Differential Comment PT INR Sodium Potassium Chloride Carbon Dioxide Anion Gap BUN Creatinine Estimated GFR POC Glucose 340 H 272 H 251 H Random Glucose Lactic Acid Calcium Total Bilirubin AST ALT Alkaline Phosphatase Total Protein Albumin Urine Color Urine Clarity Urine pH Ur Specific [place] Urine Protein Urine Glucose (UA) Urine Ketones Urine Occult Blood Urine Nitrate Urine Bilirubin Urine Urobilinogen Ur Leukocyte Esterase Urine RBC Urine WBC Urine WBC Clumps Ur Squamous Epith Cells Urine Bacteria Urine Mucus Micro UA Comment Urine Culture Comments 10/26/17 10/27/17 23:45 07:52 WBC RBC Hgb Hct MCV MCH MCHC RDW Plt Count MPV Neut % (Auto) Lymph % (Auto) [place] % (Auto) Eos % (Auto) Baso % (Auto) Neut # (Auto) Lymph # (Auto) [place] # (Auto) Eos # (Auto) Baso # (Auto) WBC Differential Differential Comment PT INR Sodium Potassium Chloride Carbon Dioxide Anion Gap BUN Creatinine Estimated GFR POC Glucose 147 H Random Glucose Lactic Acid 1.3 Calcium Total Bilirubin AST ALT Alkaline Phosphatase Total Protein Albumin Urine Color Urine Clarity Urine pH Ur Specific [place] Urine Protein Urine Glucose (UA) Urine Ketones Urine Occult Blood Urine Nitrate Urine Bilirubin Urine Urobilinogen Ur Leukocyte Esterase Urine RBC Urine WBC Urine WBC Clumps Ur Squamous Epith Cells Urine Bacteria Urine Mucus Micro UA Comment Urine Culture Comments Result Diagrams: 10/26/17 11:13 10/26/17 11:13 Imaging: ITS Impressions Head CT 10/26/17 11:08 CONCLUSION: 1. Evidence of remote left middle cerebral artery territory infarction with large area of encephalomalacia. There is ex vacuo change involving the left lateral ventricle. 2. Moderate atrophic changes. 3. No definite acute hemorrhage, mass or infarction. . Abdomen/Pelvis CT 10/26/17 12:17 CONCLUSION: 1. A conglomerate of calculi seen of the right ureterovesical junction and causing mild to moderate hydronephrosis and hydroureter. Numerous nonobstructing stones are seen of the right kidney itself, including a very large stone of the upper pole. 2. 17 mm nodule left adrenal gland, nonspecific but statistically is most likely a lipid poor adenoma. If there are any pertinent previous outside facility studies comparison to ensure chronicity is recommended. If there are no pertinent priors, abdomen MRI suggested. 3. Mild atelectasis of the visualized lung bases. 4. Small hiatal hernia. Chest X-Ray 10/26/17 12:46 CONCLUSION: No acute cardiac pulmonary disease. Assessment and Plan - Assessment (1) Ureteral calculi Code(s): N20.1 - Calculus of ureter Status: Acute (2) Renal calculus Code(s): N20.0 - Calculus of kidney Status: Acute (3) Acute UTI Code(s): N39.0 - Urinary tract infection, site not specified Status: Acute - Plan Urologic impression: 1. Multiple small right distal ureteral calculi causing mild to moderate right hydronephrosis which should pass spontaneously. 2. Multiple nonobstructing right renal calculi with the largest involving the upper pole measuring just over 3 cm 3. Urinary tract infection Recommendations: 1. Analgesic support 2. Flomax 0.4 mg by mouth daily 3. Strain all urine 4. Agree with present management of urinary tract infection 5. Follow-up imaging with a KUB study to be performed sometime early next week , can be performed as an outpatient if patient discharged.
--- NOTE | 2017-10-27 13:19 | P.PNFP ---
Subjective Interval history: Attending note: Patient seen and examined with residents. 77-year-old woman status post 20+ years ago left CVA with extensive encephalomalacia admitted from skilled nursing with altered mental status. Clinical diagnosis early on consistent with a urinary tract infection. Patient is a phasic, and gesture, primarily appears to be agitated and usually has withdrawal type movements. Please refer to resident's early on admitting note for detailed discussion and their conversation with the patient's daughter. Results - Labs Result diagrams: 10/26/17 11:13 10/26/17 11:13 Abnormal lab results 10/26/17 10/26/17 10/26/17 Range/Units 14:11 16:50 19:16 POC Glucose 370 H 340 H 272 H (68-110) mg/dl 10/26/17 10/27/17 Range/Units 21:37 07:52 POC Glucose 251 H 147 H (68-110) mg/dl - Imaging Impressions Abdomen/Pelvis CT 10/26/17 12:17 CONCLUSION: 1. A conglomerate of calculi seen of the right ureterovesical junction and causing mild to moderate hydronephrosis and hydroureter. Numerous nonobstructing stones are seen of the right kidney itself, including a very large stone of the upper pole. 2. 17 mm nodule left adrenal gland, nonspecific but statistically is most likely a lipid poor adenoma. If there are any pertinent previous outside facility studies comparison to ensure chronicity is recommended. If there are no pertinent priors, abdomen MRI suggested. 3. Mild atelectasis of the visualized lung bases. 4. Small hiatal hernia. Chest X-Ray 10/26/17 12:46 CONCLUSION: No acute cardiac pulmonary disease. Physical Exam Vital signs: Vital Signs 10/26/17 14:15 10/26/17 17:44 10/26/17 19:10 Pulse Rate 84 76 76 Respiratory Rate 18 18 16 Blood Pressure 139/65 122/69 102/59 L Pulse Oximetry 97 97 10/26/17 22:00 10/27/17 03:05 10/27/17 05:09 Pulse Rate 96 H 79 76 Respiratory Rate 22 20 18 Blood Pressure 127/73 130/60 146/70 H Pulse Oximetry 95 95 95 10/27/17 07:04 10/27/17 07:30 10/27/17 08:38 Pulse Rate 77 73 Respiratory Rate 16 18 18 Blood Pressure 157/101 H 160/69 H Pulse Oximetry 97 10/27/17 10:09 10/27/17 11:09 Pulse Rate 75 78 Respiratory Rate 18 20 Blood Pressure 154/79 H 147/74 H Pulse Oximetry 97 97 Intake & Output 10/26/17 10/27/17 10/27/17 18:59 06:59 18:59 Intake Total 2099 1050 / 1050 Balance 2099 1050 / 1050 Weight 65.771 kg Intake: IV 2099 1050 / 1050 NS Inj 1,000 ML @ 125 mls/hr IV 1999 / 1999 1000 / 1000 .CONT .Q8H [facility] Rx#:[id number] Zosyn 2.25 GM Premix 50 ML @ 100 / 100 50 / 50 100 mls/hr IV.SIG Q8H [facility] Rx#: [id number] Other: # Voids 1 # Bowel Movements 1 Narrative: Vital signs : Blood pressure 147/74 pulse 78/min regular respirations 20 temperature afebrile. General appearance: Elderly woman who has an expressive aphasia, only makes "noises ", no intelligible conversation. HEENT grossly nonlocalizing, possibly some asymmetry to the facial musculature. Lungs: Diminished breath sounds, occasional rhonchi. Cardiac: S1-S2, no S3 or significant murmurs. Abdomen: Soft and benign, no organomegaly, no tenderness no pulsatile masses. Patient does express agitation when being examined. Extremities left upper extremity 90 contraction, contraction to the right distal arm. Extensor contraction to the left lower extremity, both feet are warm and dry, no skin in jeopardy. Calves appear supple to palpation. Blood cultures and urine culture negative to date. - Urinary Catheter Management Straight Cath placed during this visit: yes Reason for continuing: Not indwelling catheter Insertion date: 10/26/17 Insertion time: 11:05 Assessment and Plan - Assessment (1) Acute UTI Code(s): N39.0 - Urinary tract infection, site not specified Status: Acute Plan: Patient with altered mental status prior to being admitted. UTI on UA. Start on Rocephin in the ED, changed to Zosyn. -follow-up urine culture -Continue Zosyn -Follow-up abdominal CT for stones and blockage (2) Sepsis Code(s): A41.9 - Sepsis, unspecified organism Status: Acute Plan: Patient presented in sepsis. UTI likely source. Rocephin and Zosyn administered in ER prior to culture gathered See plan for UTI -Follow-up cultures (3) Acute kidney injury superimposed on CKD Code(s): N17.9 - Acute kidney failure, unspecified; N18.9 - Chronic kidney disease, unspecified Status: Acute Plan: History of stage III CKD. On admission creatinine 3.95, GFR 13, likely AK I superimposed on CKD. -1 L bolus -Continue fluids as above -Follow-up BMP tomorrow (4) Diabetes Code(s): E11.9 - Type 2 diabetes mellitus without complications Status: Acute Plan: History of diabetes. Admitted with glucose 536. Given 10 units of insulin subQ upon admission, 10 units while still in skilled nursing. Improved to 370. -Fluids 1 25 mL/h -Sliding scale subQ insulin - (5) Hyperglycemia Code(s): R73.9 - Hyperglycemia, unspecified Status: Acute Plan: Admitted with glucose greater than 500. 10 units short acting insulin at skilled nursing, 10 units while in ED. -Follow-up plan for diabetes above (6) HTN (hypertension) Code(s): I10 - Essential (primary) hypertension Status: Acute Plan: History of hypertension -Continue lisinopril 10 mg daily (7) HLD (hyperlipidemia) Code(s): E78.5 - Hyperlipidemia, unspecified Status: Acute Plan: History of hyperlipidemia -Continue atorvastatin 20 mg p.o. daily - Assessment and Plan Clinical assessment: Complex 77-year-old woman who resides in a skilled nursing admitted to the hospital with altered mental status from her baseline and findings consistent with a urinary tract infection. Empiric antibiotics have been ordered. Urology is seeing patient for multiple stones in the right collecting ducts as well as the pelvis of the right kidney. Conservative management under the circumstances. Case discussed in detail with the residents and physician agrees with the orders as per record. (2) Sepsis Qualifiers: Sepsis type: sepsis due to unspecified organism Qualified Code(s): A41.9 - Sepsis, unspecified organism
[2017-10-27] MEDS ORDERED: hydrALAZINE HCl Inj 20 MG/ML Vial IV.PUSH PRN (22:26)
[2017-10-27] MEDS: Mirtazapine 15 MG Tablet PO SCH (23:17)
[2017-10-28] MEDS: Piperacil/Tazo 2.25 GM Premix 50 ML IV.SIG SCH ×3 (05:28→21:40)
[2017-10-28] MEDS: Heparin - SQ 10,000 UNITS/ML Vial SQ SCH ×2 (05:29→14:48)
[2017-10-28] MEDS: Sod Chloride 0.9% Inj 1,000 ML IV.CONT SCH ×3 (06:17→23:10)
[2017-10-28] MEDS: Lisinopril 10 MG Tablet PO SCH (09:43)
[2017-10-28] MEDS: Senna/Docusate Sodium 8.6/50 MG Tablet PO SCH ×2 (09:43→21:52)
--- NOTE | 2017-10-28 10:00 | P.PNFP ---
Subjective Interval history: Patient seen and examined today. Reported to have had hypertension overnight, improving. No other acute events overnight. Unable to communicate verbally. Results - Labs Result diagrams: 10/26/17 11:13 10/26/17 11:13 Abnormal lab results 10/27/17 10/27/17 Range/Units 16:52 21:41 POC Glucose 151 H 135 H (68-110) mg/dl Physical Exam Vital signs: Vital Signs 10/27/17 10:09 10/27/17 11:09 10/27/17 13:50 Temperature 97.7 F Pulse Rate 75 78 74 Respiratory Rate 18 20 18 Blood Pressure 154/79 H 147/74 H 169/95 H Pulse Oximetry 97 97 98 10/27/17 15:00 10/27/17 16:00 10/27/17 17:00 Temperature 97.9 F Pulse Rate 76 78 68 Respiratory Rate 18 Blood Pressure 155/95 H Pulse Oximetry 99 10/27/17 18:00 10/27/17 19:00 10/27/17 20:00 Temperature 98.4 F Pulse Rate 76 78 74 Respiratory Rate 16 Blood Pressure 197/113 H Pulse Oximetry 93 L 10/27/17 21:00 10/27/17 22:00 10/27/17 23:00 Temperature Pulse Rate 72 70 64 Respiratory Rate Blood Pressure Pulse Oximetry 10/28/17 00:00 10/28/17 01:00 10/28/17 02:00 Temperature 98.6 F Pulse Rate 72 82 76 Respiratory Rate 16 Blood Pressure 149/84 H Pulse Oximetry 93 L 10/28/17 04:00 10/28/17 05:26 Temperature 98.3 F Pulse Rate 71 Respiratory Rate 16 Blood Pressure 177/90 H 158/85 H Pulse Oximetry 98 Intake & Output 10/27/17 10/28/17 10/28/17 18:59 06:59 18:59 Intake Total 1530 / 1530 1340 / 1340 Output Total 225 / 225 Balance 1530 / 1530 1115 / 1115 Weight 69 kg Intake: IV 1050 / 1050 1100 / 1100 NS Inj 1,000 ML @ 125 mls/hr IV 1000 / 1000 1000 / 1000 .CONT .Q8H [facility] Rx#:[id number] Zosyn 2.25 GM Premix 50 ML @ 50 / 50 100 / 100 100 mls/hr IV.SIG Q8H [facility] Rx#: [id number] Oral 480 / 480 240 / 240 Output: Urine 225 / 225 Stool 0 / 0 Other: # Voids 1 1 # Incontinent Voids 2 Date of Last Bowel Movement 10/27/17 10/27/17 # Bowel Movements 1 Narrative: GENERAL: Laying in bed, no acute distress, only responds with "ow" SKIN: Warm and dry. HEAD: Atraumatic. Normocephalic. EYES: Pupils equal and round. No scleral icterus. No injection or drainage. ENT: No nasal bleeding or discharge. Mucous membranes pink and moist. NECK: Trachea midline. No JVD. CARDIOVASCULAR: Regular rate and rhythm. RESPIRATORY: No accessory muscle use. Clear to auscultation. Breath sounds equal bilaterally. GASTROINTESTINAL: Abdomen soft, non-tender, nondistended. Hepatic and splenic margins not palpable. MUSCULOSKELETAL: Extremities without clubbing, cyanosis, or edema. No obvious deformities. NEUROLOGICAL: Awake and alert. - Urinary Catheter Management Straight Cath placed during this visit: yes Reason for continuing: Not indwelling catheter Insertion date: 10/26/17 Insertion time: 11:05 Assessment and Plan - Assessment (1) Acute UTI Code(s): N39.0 - Urinary tract infection, site not specified Status: Acute Plan: Patient with altered mental status prior to being admitted. UTI on UA. Start on Rocephin in the ED, changed to Zosyn. -follow-up urine culture -Continue Zosyn -Many stones on CT, urology recommends analgesics, Flomax, strain urine, follow- up KUB study early next week which can be done outpatient if patient is discharged at that time (2) Sepsis Code(s): A41.9 - Sepsis, unspecified organism Status: Acute Plan: Patient presented in sepsis. UTI likely source. Rocephin and Zosyn administered in ER prior to culture gathered See plan for UTI -Bcx NGTD (3) Acute kidney injury superimposed on CKD Code(s): N17.9 - Acute kidney failure, unspecified; N18.9 - Chronic kidney disease, unspecified Status: Acute Plan: History of stage III CKD. On admission creatinine 3.95, GFR 13, likely [place] I superimposed on CKD. -1 L bolus -Continue fluids as above -Follow-up BMP tomorrow (4) Diabetes Code(s): E11.9 - Type 2 diabetes mellitus without complications Status: Acute Plan: History of diabetes. Admitted with glucose 536. Given 10 units of insulin subQ upon admission, 10 units while still in shelter. Improved to 370. -Fluids 1 25 mL/h -Sliding scale subQ insulin (5) Hyperglycemia Code(s): R73.9 - Hyperglycemia, unspecified Status: Acute Plan: Admitted with glucose greater than 500. 10 units short acting insulin at shelter, 10 units while in ED. -Follow-up plan for diabetes above (6) HTN (hypertension) Code(s): I10 - Essential (primary) hypertension Status: Acute Plan: History of hypertension -Continue lisinopril 10 mg daily -Clonidine .1 Q6 PRN Systolic >160 (7) HLD (hyperlipidemia) Code(s): E78.5 - Hyperlipidemia, unspecified Status: Acute Plan: History of hyperlipidemia -Continue atorvastatin 20 mg p.o. daily (2) Sepsis Qualifiers: Sepsis type: sepsis due to unspecified organism Qualified Code(s): A41.9 - Sepsis, unspecified organism
[2017-10-28 11:11] LABS: Calcium 8.6 mg/dL (8.5-10.1); Carbon Dioxide 21.6 meq/L (21.0-32.0); Potassium 4.1 meq/L (3.5-5.1)
[2017-10-28] MEDS: Insulin NovoLOG Aspart Correctional Sugar Inj SQ SCH ×3 (12:09→21:43)
[2017-10-28 15:07] LABS: Baso # (Auto) 0.1 th/mm3 (0.0-0.2); Baso % (Auto) 0.5 % (0.0-2.0); Eos % (Auto) 0.4 % (0.0-4.0); Hematocrit 43.4 % (35.0-46.0); Hemoglobin 13.9 gm/dL (11.6-15.3); Lymph # (Auto) 1.6 th/mm3 (1.0-4.8); Lymph % (Auto) 14.6 % (9.0-44.0); Mean Corpuscular Volume 90.8 fL (80.0-100.0); Mean Platelet Volume 8.7 fL (7.0-11.0); Mono # (Auto) 0.7 th/mm3 (0.0-0.9); Mono % (Auto) 6.1 % (0.0-8.0); Neut # (Auto) 8.5 th/mm3 (1.8-7.7); Neut % (Auto) 78.4 % (16.0-70.0); Platelet Count 144 th/mm3 (150-450); Red Blood Count 4.77 mil/mm3 (4.00-5.30); Red Cell Distribution Width 14.8 % (11.6-17.2); White Blood Count 10.8 th/mm3 (4.0-11.0)
[2017-10-28] MEDS: Mirtazapine 15 MG Tablet PO SCH (21:39)
[2017-10-28] MEDS: hydrALAZINE 25 MG Tablet PO PRN (21:40)
[2017-10-29] MEDS: Sod Chloride 0.9% Inj 1,000 ML IV.CONT SCH ×2 (02:03→06:52)
[2017-10-29] MEDS: Heparin - SQ 10,000 UNITS/ML Vial SQ SCH ×2 (03:48→17:46)
[2017-10-29] MEDS: Piperacil/Tazo 2.25 GM Premix 50 ML IV.SIG SCH (03:48)
[2017-10-29 06:32] LABS: Baso # (Auto) 0.1 th/mm3 (0.0-0.2); Baso % (Auto) 1.1 % (0.0-2.0); Eos % (Auto) 0.5 % (0.0-4.0); Hematocrit 33.2 % (35.0-46.0); Hemoglobin 11.1 gm/dL (11.6-15.3); Lymph # (Auto) 1.6 th/mm3 (1.0-4.8); Lymph % (Auto) 22.9 % (9.0-44.0); Mean Corpuscular HGB Conc 33.4 % (32.0-36.0); Mean Corpuscular Hemoglobin 29.5 pg (27.0-34.0); Mean Corpuscular Volume 88.4 fL (80.0-100.0); Mean Platelet Volume 8.4 fL (7.0-11.0); Mono # (Auto) 0.4 th/mm3 (0.0-0.9); Mono % (Auto) 5.5 % (0.0-8.0); Neut # (Auto) 4.9 th/mm3 (1.8-7.7); Platelet Count 128 th/mm3 (150-450); Red Blood Count 3.76 mil/mm3 (4.00-5.30); Red Cell Distribution Width 14.6 % (11.6-17.2); White Blood Count 7.1 th/mm3 (4.0-11.0)
[2017-10-29 06:52] LABS: Carbon Dioxide 21.4 meq/L (21.0-32.0); Potassium 3.5 meq/L (3.5-5.1)
[2017-10-29 07:41] LABS: Eosinophils 2 % (0-4); Lymphocytes 18 % (9-44); Monocytes 2 % (0-8); Platelet Morphology Normal (Normal)
[2017-10-29 07:42] LABS: RBC Morphology Normal (Normal)
[2017-10-29] MEDS ORDERED: amLODIPine 5 MG Tablet PO SCH (09:00)
--- NOTE | 2017-10-29 09:31 | P.PNFP ---
Subjective Interval history: Ms. Scott was seen on rounds today. No changes in clinical status. Review of systems unable to obtain based on patient's noncommunicative status. <Ruth Ann Rogel E - 10/29/17 09:31> Results - Labs Result diagrams: 10/29/17 06:19 10/29/17 06:19 <Melvin Fox E - 10/29/17 11:01> Abnormal lab results 10/28/17 10/28/17 10/28/17 Range/Units 10:21 11:46 14:00 RBC (4.00-5.30) mil/mm3 Hgb (11.6-15.3) gm/dL Hct (35.0-46.0) % Plt Count 144 L (150-450) th/mm3 Neut % (Auto) 78.4 H (16.0-70.0) % Neut # (Auto) 8.5 H (1.8-7.7) th/mm3 Seg Neuts % (Manual) (16-70) % Platelet Estimate (Normal) Sodium 150 H (136-145) meq/L Chloride 121 H D (98-107) meq/L BUN 46 H (7-18) mg/dL Creatinine 2.28 H (0.50-1.00) mg/dL Estimated GFR 25 L (>89) mL/min POC Glucose 176 H (68-110) mg/dl Random Glucose 178 H D (74-106) mg/dL Calcium (8.5-10.1) mg/dL 10/28/17 10/28/17 10/28/17 Range/Units 16:24 17:51 21:43 RBC (4.00-5.30) mil/mm3 Hgb (11.6-15.3) gm/dL Hct (35.0-46.0) % Plt Count (150-450) th/mm3 Neut % (Auto) (16.0-70.0) % Neut # (Auto) (1.8-7.7) th/mm3 Seg Neuts % (Manual) (16-70) % Platelet Estimate (Normal) Sodium (136-145) meq/L Chloride (98-107) meq/L BUN (7-18) mg/dL Creatinine (0.50-1.00) mg/dL Estimated GFR (>89) mL/min POC Glucose 227 H 254 H 202 H (68-110) mg/dl Random Glucose (74-106) mg/dL Calcium (8.5-10.1) mg/dL 10/29/17 10/29/17 10/29/17 Range/Units 06:19 06:19 07:55 RBC 3.76 L (4.00-5.30) mil/mm3 Hgb 11.1 L D (11.6-15.3) gm/dL Hct 33.2 L (35.0-46.0) % Plt Count 128 L (150-450) th/mm3 Neut % (Auto) (16.0-70.0) % Neut # (Auto) (1.8-7.7) th/mm3 Seg Neuts % (Manual) 75 H (16-70) % Platelet Estimate Low L (Normal) Sodium 154 H (136-145) meq/L Chloride 125 H (98-107) meq/L BUN 36 H (7-18) mg/dL Creatinine 1.84 H (0.50-1.00) mg/dL Estimated GFR 32 L (>89) mL/min POC Glucose 209 H (68-110) mg/dl Random Glucose 199 H (74-106) mg/dL Calcium 8.0 L (8.5-10.1) mg/dL Short CBC 10/28/17 10/29/17 Range/Units 14:00 06:19 WBC 10.8 7.1 (4.0-11.0) th/mm3 Hgb 13.9 11.1 L D (11.6-15.3) gm/dL Hct 43.4 33.2 L (35.0-46.0) % Plt Count 144 L 128 L (150-450) th/mm3 BMP 10/28/17 10/29/17 10:21 06:19 Sodium 150 H 154 H Potassium 4.1 3.5 Chloride 121 H D 125 H Carbon Dioxide 21.6 21.4 BUN 46 H 36 H Creatinine 2.28 H 1.84 H Calcium 8.6 D 8.0 L <Melvin Fox - 10/29/17 11:01> Abnormal lab results 10/28/17 10/28/17 10/28/17 Range/Units 10:21 11:46 14:00 RBC (4.00-5.30) mil/mm3 Hgb (11.6-15.3) gm/dL Hct (35.0-46.0) % Plt Count 144 L (150-450) th/mm3 Neut % (Auto) 78.4 H (16.0-70.0) % Neut # (Auto) 8.5 H (1.8-7.7) th/mm3 Seg Neuts % (Manual) (16-70) % Platelet Estimate (Normal) Sodium 150 H (136-145) meq/L Chloride 121 H D (98-107) meq/L BUN 46 H (7-18) mg/dL Creatinine 2.28 H (0.50-1.00) mg/dL Estimated GFR 25 L (>89) mL/min POC Glucose 176 H (68-110) mg/dl Random Glucose 178 H D (74-106) mg/dL Calcium (8.5-10.1) mg/dL 10/28/17 10/28/17 10/28/17 Range/Units 16:24 17:51 21:43 RBC (4.00-5.30) mil/mm3 Hgb (11.6-15.3) gm/dL Hct (35.0-46.0) % Plt Count (150-450) th/mm3 Neut % (Auto) (16.0-70.0) % Neut # (Auto) (1.8-7.7) th/mm3 Seg Neuts % (Manual) (16-70) % Platelet Estimate (Normal) Sodium (136-145) meq/L Chloride (98-107) meq/L BUN (7-18) mg/dL Creatinine (0.50-1.00) mg/dL Estimated GFR (>89) mL/min POC Glucose 227 H 254 H 202 H (68-110) mg/dl Random Glucose (74-106) mg/dL Calcium (8.5-10.1) mg/dL 10/29/17 10/29/17 10/29/17 Range/Units 06:19 06:19 07:55 RBC 3.76 L (4.00-5.30) mil/mm3 Hgb 11.1 L D (11.6-15.3) gm/dL Hct 33.2 L (35.0-46.0) % Plt Count 128 L (150-450) th/mm3 Neut % (Auto) (16.0-70.0) % Neut # (Auto) (1.8-7.7) th/mm3 Seg Neuts % (Manual) 75 H (16-70) % Platelet Estimate Low L (Normal) Sodium 154 H (136-145) meq/L Chloride 125 H (98-107) meq/L BUN 36 H (7-18) mg/dL Creatinine 1.84 H (0.50-1.00) mg/dL Estimated GFR 32 L (>89) mL/min POC Glucose 209 H (68-110) mg/dl Random Glucose 199 H (74-106) mg/dL Calcium 8.0 L (8.5-10.1) mg/dL Short CBC 10/28/17 10/29/17 Range/Units 14:00 06:19 WBC 10.8 7.1 (4.0-11.0) th/mm3 Hgb 13.9 11.1 L D (11.6-15.3) gm/dL Hct 43.4 33.2 L (35.0-46.0) % Plt Count 144 L 128 L (150-450) th/mm3 BMP 10/28/17 10/29/17 10:21 06:19 Sodium 150 H 154 H Potassium 4.1 3.5 Chloride 121 H D 125 H Carbon Dioxide 21.6 21.4 BUN 46 H 36 H Creatinine 2.28 H 1.84 H Calcium 8.6 D 8.0 L <Ruth Ann Rogel - 10/29/17 09:31> Physical Exam Vital signs: Vital Signs 10/28/17 12:00 10/28/17 13:00 10/28/17 14:00 Temperature 98.1 F Pulse Rate 70 68 106 H Respiratory Rate 16 Blood Pressure 150/81 H Pulse Oximetry 96 10/28/17 15:00 10/28/17 16:00 10/28/17 17:00 Temperature 98.1 F Pulse Rate 80 70 70 Respiratory Rate 16 Blood Pressure 160/90 H Pulse Oximetry 96 10/28/17 19:00 10/28/17 20:00 10/28/17 21:00 Temperature 98.1 F Pulse Rate 75 83 78 Respiratory Rate 20 Blood Pressure 197/103 H Pulse Oximetry 96 10/28/17 22:00 10/28/17 23:00 10/29/17 00:00 Temperature 98.0 F Pulse Rate 68 83 85 Respiratory Rate 18 Blood Pressure 159/85 H Pulse Oximetry 97 10/29/17 01:00 10/29/17 02:00 10/29/17 03:00 Temperature Pulse Rate 72 74 71 Respiratory Rate Blood Pressure Pulse Oximetry 10/29/17 04:00 10/29/17 05:00 10/29/17 06:00 Temperature 97.5 F L Pulse Rate 84 68 62 Respiratory Rate 18 Blood Pressure 184/102 H Pulse Oximetry 99 10/29/17 07:36 10/29/17 07:39 10/29/17 08:00 Temperature 97.8 F Pulse Rate 67 79 Respiratory Rate 20 18 Blood Pressure 195/98 H Pulse Oximetry 99 Intake & Output 10/28/17 10/29/17 10/29/17 18:59 06:59 18:59 Intake Total 1543 / 1543 1340 / 1340 Output Total 300 / 300 500 / 500 Balance 1243 / 1243 840 / 840 Weight 72.3 kg 70.5 kg Intake: IV 1063 / 1063 1100 / 1100 NS Inj 1,000 ML @ 125 mls/hr IV 1013 / 1013 1000 / 1000 .CONT .Q8H [facility] Rx#:[id number] Zosyn 2.25 GM Premix 50 ML @ 50 / 50 100 / 100 100 mls/hr IV.SIG Q8H [facility] Rx#: [id number] Oral 480 / 480 240 / 240 Output: Urine 300 / 300 500 / 500 Other: Date of Last Bowel Movement 10/28/17 10/28/17 10/29/17 # Bowel Movements 2 <Melvin Fox E - 10/29/17 11:01> Vital Signs 10/28/17 10:00 10/28/17 11:00 10/28/17 12:00 Temperature 98.1 F Pulse Rate 78 70 70 Respiratory Rate 16 Blood Pressure 150/81 H Pulse Oximetry 96 10/28/17 13:00 10/28/17 14:00 10/28/17 15:00 Temperature Pulse Rate 68 106 H 80 Respiratory Rate Blood Pressure Pulse Oximetry 10/28/17 16:00 10/28/17 17:00 10/28/17 19:00 Temperature 98.1 F Pulse Rate 70 70 75 Respiratory Rate 16 Blood Pressure 160/90 H Pulse Oximetry 96 10/28/17 20:00 10/28/17 21:00 10/28/17 22:00 Temperature 98.1 F Pulse Rate 83 78 68 Respiratory Rate 20 Blood Pressure 197/103 H Pulse Oximetry 96 10/28/17 23:00 10/29/17 00:00 10/29/17 01:00 Temperature 98.0 F Pulse Rate 83 85 72 Respiratory Rate 18 Blood Pressure 159/85 H Pulse Oximetry 97 10/29/17 02:00 10/29/17 03:00 10/29/17 04:00 Temperature 97.5 F L Pulse Rate 74 71 84 Respiratory Rate 18 Blood Pressure 184/102 H Pulse Oximetry 99 10/29/17 05:00 10/29/17 06:00 10/29/17 07:36 Temperature Pulse Rate 68 62 Respiratory Rate 20 Blood Pressure Pulse Oximetry 10/29/17 07:39 Temperature Pulse Rate 67 Respiratory Rate Blood Pressure Pulse Oximetry Intake & Output 10/28/17 10/29/17 10/29/17 18:59 06:59 18:59 Intake Total 1543 / 1543 1340 / 1340 Output Total 300 / 300 500 / 500 Balance 1243 / 1243 840 / 840 Weight 72.3 kg 70.5 kg Intake: IV 1063 / 1063 1100 / 1100 NS Inj 1,000 ML @ 125 mls/hr IV 1013 / 1013 1000 / 1000 .CONT .Q8H [facility] Rx#:[id number] Zosyn 2.25 GM Premix 50 ML @ 50 / 50 100 / 100 100 mls/hr IV.SIG Q8H [facility] Rx#: [id number] Oral 480 / 480 240 / 240 Output: Urine 300 / 300 500 / 500 Other: Date of Last Bowel Movement 10/28/17 10/28/17 # Bowel Movements 2 <Ruth Ann Rogel - 10/29/17 09:31> Narrative: GENERAL: Laying in bed, no acute distress, only responds with "ow" CARDIOVASCULAR: Regular rate and rhythm. RESPIRATORY: No accessory muscle use. Clear to auscultation. Breath sounds equal bilaterally. GASTROINTESTINAL: Abdomen soft, non-tender, nondistended. Hepatic and splenic margins not palpable. <Ruth Ann Rogel - 10/29/17 09:31> - Urinary Catheter Management Straight Cath placed during this visit: no <Melvin Fox E - 10/29/17 11:01> yes <Ruth Ann Rogel E - 10/29/17 09:31> Reason for continuing: Not indwelling catheter <Ruth Ann Rogel E - 10/29/17 09:31 > Insertion date: 10/26/17 <Ruth Ann Rogel E - 10/29/17 09:31> Insertion time: 11:05 <Ruth Ann Rogel E - 10/29/17 09:31> Assessment and Plan - Assessment (1) Acute UTI Code(s): N39.0 - Urinary tract infection, site not specified Status: Acute (2) Sepsis Code(s): A41.9 - Sepsis, unspecified organism Status: Acute (3) HTN (hypertension) Code(s): I10 - Essential (primary) hypertension Status: Acute (4) Acute kidney injury superimposed on CKD Code(s): N17.9 - Acute kidney failure, unspecified; N18.9 - Chronic kidney disease, unspecified Status: Acute (5) Diabetes Code(s): E11.9 - Type 2 diabetes mellitus without complications Status: Acute (6) Hyperglycemia Code(s): R73.9 - Hyperglycemia, unspecified Status: Acute (7) HLD (hyperlipidemia) Code(s): E78.5 - Hyperlipidemia, unspecified Status: Acute <Melvin Fox E - 10/29/17 11:01> (1) Acute UTI Code(s): N39.0 - Urinary tract infection, site not specified Status: Acute Plan: Patient with altered mental status prior to being admitted. UTI on UA. Start on Rocephin in the ED, changed to Zosyn. -Urine culture grew lactobacillus greater than 100,000 colony-forming units -Patient switched to p.o. nitrofurantoin 100 mg twice daily -IV fluids switch to half-normal saline 125ml/hr due to increasing sodium level. We will continue to monitor -DC Zosyn -Many stones on CT, urology recommends analgesics, Flomax, strain urine, follow- up KUB study early next week which can be done outpatient if patient is discharged at that time (2) Sepsis Code(s): A41.9 - Sepsis, unspecified organism Status: Acute Plan: Patient presented in sepsis. UTI likely source. Rocephin and Zosyn administered in ER prior to culture gathered See plan for UTI -Bcx NGTD (3) HTN (hypertension) Code(s): I10 - Essential (primary) hypertension Status: Acute Plan: History of hypertension -Patient's BPs have been running in the 180s and 190s systolic -Continue lisinopril 10 mg daily -Clonidine 0.1 mg patch ordered to be placed today -Amlodipine 2.5 mg daily -Hydralazine 25 mg p.o. every 8 as needed -Continue to monitor (4) Acute kidney injury superimposed on CKD Code(s): N17.9 - Acute kidney failure, unspecified; N18.9 - Chronic kidney disease, unspecified Status: Acute Plan: History of stage III CKD. On admission creatinine 3.95, GFR 13, likely [place] I superimposed on CKD. -1 L bolus -Continue fluids as above -Follow-up BMP tomorrow (5) Diabetes Code(s): E11.9 - Type 2 diabetes mellitus without complications Status: Acute Plan: History of diabetes. Admitted with glucose 536. Given 10 units of insulin subQ upon admission, 10 units while still in halfway. Improved to 370. -Fluids 125 mL/h -Sliding scale subQ insulin (6) Hyperglycemia Code(s): R73.9 - Hyperglycemia, unspecified Status: Acute Plan: Admitted with glucose greater than 500. 10 units short acting insulin at halfway, 10 units while in ED. -Follow-up plan for diabetes above (7) HLD (hyperlipidemia) Code(s): E78.5 - Hyperlipidemia, unspecified Status: Acute Plan: History of hyperlipidemia -Continue atorvastatin 20 mg p.o. daily <Ruth Ann Rogel E - 10/29/17 09:25> - Assessment and Plan Attending note: Patient seen and examined with the resident. Mental status is much calmer, appears to have some semi-lucid understanding. Plans are to transition to all oral medications, patient lives in a local halfway and will try to facilitate early on admission. Agree with orders as written by resident. Melvin Fox MD 10/29/2017. <Melvin Fox - 10/29/17 11:01> Discussed Condition With: Dr Fox <Ruth Ann Rogel E - 10/29/17 09:31> <Ruth Ann Rogel E - Last Filed: 10/29/17 09:25> (2) Sepsis Qualifiers: Sepsis type: sepsis due to unspecified organism Qualified Code(s): A41.9 - Sepsis, unspecified organism <Melvin Fox E - Last Filed: 10/29/17 11:01> (2) Sepsis Qualifiers: Sepsis type: sepsis due to unspecified organism Qualified Code(s): A41.9 - Sepsis, unspecified organism <Ruth Ann Rogel E - Last Filed: 10/29/17 09:25> (2) Sepsis Qualifiers: Sepsis type: sepsis due to unspecified organism Qualified Code(s): A41.9 - Sepsis, unspecified organism <Melvin Fox E - Last Filed: 10/29/17 11:01> (2) Sepsis Qualifiers: Sepsis type: sepsis due to unspecified organism Qualified Code(s): A41.9 - Sepsis, unspecified organism
[2017-10-29] MEDS: Insulin NovoLOG Aspart Correctional Sugar Inj SQ SCH ×7 (09:47→21:05)
[2017-10-29] MEDS: Lisinopril 10 MG Tablet PO SCH (09:48)
[2017-10-29] MEDS: Sodium Chloride 0.45 % Inj 1,000 ML IV.CONT SCH ×2 (10:08→17:48)
[2017-10-29] MEDS: Senna/Docusate Sodium 8.6/50 MG Tablet PO SCH ×2 (10:12→21:03)
[2017-10-29] MEDS: Nitrofurantoin Monohydrate-Macrocrystal 100 MG Capsule PO SCH ×2 (10:13→17:47)
[2017-10-29] MEDS: hydrALAZINE 25 MG Tablet PO PRN (21:02)
[2017-10-29] MEDS: Mirtazapine 15 MG Tablet PO SCH (21:03)
[2017-10-29] MEDS ORDERED: hydrALAZINE 25 MG Tablet PO ONE (23:20)
[2017-10-30] MEDS: Sodium Chloride 0.45 % Inj 1,000 ML IV.CONT SCH ×3 (02:33→20:52)
[2017-10-30] MEDS: Heparin - SQ 10,000 UNITS/ML Vial SQ SCH ×2 (02:33→13:17)
[2017-10-30 07:10] LABS: Calcium 8.9 mg/dL (8.5-10.1)
[2017-10-30 07:15] LABS: Potassium 3.5 meq/L (3.5-5.1)
[2017-10-30] MEDS: Insulin NovoLOG Aspart Correctional Sugar Inj SQ SCH ×4 (08:03→20:53)
[2017-10-30] MEDS: hydrALAZINE 50 MG Tablet PO SCH ×3 (09:08→17:53)
[2017-10-30] MEDS: Lisinopril 20 MG Tablet PO SCH (09:08)
[2017-10-30] MEDS: Nitrofurantoin Monohydrate-Macrocrystal 100 MG Capsule PO SCH ×2 (09:08→17:53)
[2017-10-30] MEDS: amLODIPine 5 MG Tablet PO SCH (09:08)
[2017-10-30] MEDS: Senna/Docusate Sodium 8.6/50 MG Tablet PO SCH ×2 (09:08→20:53)
[2017-10-30 10:26] LABS: Hematocrit 38.2 % (35.0-46.0); Hemoglobin 12.6 gm/dL (11.6-15.3); Mean Corpuscular HGB Conc 32.9 % (32.0-36.0); Mean Corpuscular Hemoglobin 29.1 pg (27.0-34.0); Mean Corpuscular Volume 88.5 fL (80.0-100.0); Mean Platelet Volume 8.5 fL (7.0-11.0); Platelet Count 140 th/mm3 (150-450); Red Blood Count 4.32 mil/mm3 (4.00-5.30); Red Cell Distribution Width 14.5 % (11.6-17.2)
--- NOTE | 2017-10-30 14:07 | P.PNFP ---
Subjective Interval history: Ms. Scott was seen on rounds today. Review of systems unable to obtain based on patient's noncommunicative status, but when asked if she was in any pain, patient shook her head no. Yesterday patient had urinary retention and I/O cath 700 cc of urine. Acevedo was placed. She also was hypertensive yesterday afternoon 209/160. Hydralazine 25mg was given and pressure lowered to 198/100. Scheduled hydralazine 50mg was added to her previous BP regimen. This morning nursing held fluids temporarily based on elevated pressures, but the fluids were restarted given her MARLYN and renal stones. Results - Labs Result diagrams: 10/30/17 09:49 10/30/17 05:16 Abnormal lab results 10/29/17 10/29/17 10/30/17 Range/Units 17:01 20:59 05:16 Plt Count (150-450) th/mm3 Sodium 150 H (136-145) meq/L Chloride 120 H (98-107) meq/L BUN 24 H (7-18) mg/dL Creatinine 1.63 H (0.50-1.00) mg/dL Estimated GFR 37 L (>89) mL/min POC Glucose 211 H 175 H (68-110) mg/dl Random Glucose 141 H (74-106) mg/dL 10/30/17 10/30/17 10/30/17 Range/Units 08:02 09:49 11:42 Plt Count 140 L (150-450) th/mm3 Sodium (136-145) meq/L Chloride (98-107) meq/L BUN (7-18) mg/dL Creatinine (0.50-1.00) mg/dL Estimated GFR (>89) mL/min POC Glucose 148 H 167 H (68-110) mg/dl Random Glucose (74-106) mg/dL Short CBC 10/30/17 Range/Units 09:49 WBC 9.0 (4.0-11.0) th/mm3 Hgb 12.6 (11.6-15.3) gm/dL Hct 38.2 (35.0-46.0) % Plt Count 140 L (150-450) th/mm3 BMP 10/30/17 05:16 Sodium 150 H Potassium 3.5 Chloride 120 H Carbon Dioxide 22.0 BUN 24 H Creatinine 1.63 H Calcium 8.9 D Physical Exam Vital signs: Vital Signs 10/29/17 14:51 10/29/17 16:00 10/29/17 19:00 Temperature 98.1 F Pulse Rate 65 61 Respiratory Rate 18 18 Blood Pressure 161/88 H Pulse Oximetry 98 10/29/17 20:00 10/29/17 20:57 10/29/17 21:00 Temperature 98.8 F Pulse Rate 82 67 Respiratory Rate 18 18 Blood Pressure 209/112 H 181/120 H Pulse Oximetry 98 10/29/17 22:00 10/29/17 23:00 10/30/17 00:00 Temperature 98.8 F Pulse Rate 70 74 69 Respiratory Rate 18 Blood Pressure 177/91 H Pulse Oximetry 97 10/30/17 01:00 10/30/17 02:00 10/30/17 04:00 Temperature Pulse Rate 66 64 60 Respiratory Rate Blood Pressure Pulse Oximetry 10/30/17 05:00 10/30/17 05:35 10/30/17 06:00 Temperature 98.8 F Pulse Rate 80 70 62 Respiratory Rate 18 Blood Pressure 188/98 H Pulse Oximetry 97 10/30/17 07:00 10/30/17 08:00 10/30/17 08:05 Temperature 98.7 F Pulse Rate 62 64 67 Respiratory Rate 18 Blood Pressure 201/105 H Pulse Oximetry 97 10/30/17 09:00 10/30/17 10:00 10/30/17 11:00 Temperature Pulse Rate 70 68 81 Respiratory Rate Blood Pressure Pulse Oximetry 10/30/17 12:00 10/30/17 13:00 Temperature 97.5 F L Pulse Rate 88 106 H Respiratory Rate 16 Blood Pressure 194/94 H Pulse Oximetry 99 Intake & Output 10/29/17 10/30/17 10/30/17 18:59 06:59 18:59 Intake Total 1625 / 1625 1300 / 1300 750 / 750 Output Total 725 / 725 1400 / 1400 Balance 900 / 900 -100 / -100 750 / 750 Weight 70.5 kg 69 kg Intake: IV 1000 / 1000 1000 / 1000 750 / 750 1/2 Normal Saline Inj 1,000 ML 1000 / 1000 1000 / 1000 @ 125 mls/hr IV.CONT .Q8H [facility] Rx#:[id number] Oral 625 / 625 300 / 300 Output: Urine 725 / 725 1400 / 1400 Other: Date of Last Bowel Movement 10/29/17 10/29/17 # Bowel Movements 2 - Constitutional no acute distress - Detailed Respiratory Exam bilateral Present: clear to auscultation. Absent: rhonchi, wheezes - Routine Cardiovascular Exam Present: RRR, S1, S2. Absent: murmur - Routine Abdominal Exam Present: soft, tenderness, distended - Urinary Catheter Management Straight Cath placed during this visit: yes, but has since been removed by the nurse Reason for continuing: Not indwelling catheter Insertion date: 10/29/17 Insertion time: 22:50 Removal time: 23:00 Indwelling Urethral Catheter Cath placed during this visit: yes Reason for continuing: Acute urinary retention Insertion date: 10/29/17 Insertion time: 23:10 Assessment and Plan - Assessment (1) Acute UTI Code(s): N39.0 - Urinary tract infection, site not specified Status: Acute Plan: Patient with altered mental status prior to being admitted. UTI on UA. Start on Rocephin in the ED, changed to Zosyn. -Urine culture grew lactobacillus greater than 100,000 colony-forming units -Patient switched to p.o. nitrofurantoin 100 mg twice daily -IV fluids switch to half-normal saline 125ml/hr due to increasing sodium level. We will continue to monitor -DC Zosyn -Many stones on CT, urology recommends analgesics, Flomax, strain urine, follow- up KUB study early next week which can be done outpatient if patient is discharged at that time (2) Sepsis Code(s): A41.9 - Sepsis, unspecified organism Status: Acute Plan: Patient presented in sepsis. UTI likely source. Rocephin and Zosyn administered in ER prior to culture gathered See plan for UTI -Bcx NGTD (3) HTN (hypertension) Code(s): I10 - Essential (primary) hypertension Status: Acute Plan: History of hypertension -Patient's BPs have been running in the 180s and 190s systolic -Increased lisinopril to 20 mg daily -Clonidine 0.1 mg patch daily -Amlodipine increased to 5 mg daily -Hydralazine 50 mg TID -Continue to monitor (4) Acute kidney injury superimposed on CKD Code(s): N17.9 - Acute kidney failure, unspecified; N18.9 - Chronic kidney disease, unspecified Status: Acute Plan: History of stage III CKD. On admission creatinine 3.95, GFR 13, likely [place] I superimposed on CKD. -Continue fluids as above -Follow-up BMP tomorrow (5) Diabetes Code(s): E11.9 - Type 2 diabetes mellitus without complications Status: Acute Plan: History of diabetes. Admitted with glucose 536. Given 10 units of insulin subQ upon admission, 10 units [facility] in [facility]. Improved to 370. Glucose 141 this morning. -Fluids 125 mL/h -Sliding scale subQ insulin (6) Hyperglycemia Code(s): R73.9 - Hyperglycemia, unspecified Status: Acute Plan: Admitted with glucose greater than 500. 10 units short acting [facility] at jail, 10 units while in ED. -Follow-up plan for diabetes above (7) HLD (hyperlipidemia) Code(s): E78.5 - Hyperlipidemia, unspecified Status: Acute Plan: History of hyperlipidemia -Continue atorvastatin 20 mg p.o. daily (8) Nutrition, metabolism, and development symptoms Code(s): R63.8 - Other symptoms and signs concerning food and fluid intake Status: Acute Plan: Diet: diabetic diet Fluids: 125 mL/hr DVT:heparin 5,000 q12 Full code (2) Sepsis Qualifiers: Sepsis type: sepsis due to unspecified organism Qualified Code(s): A41.9 - Sepsis, unspecified organism
--- NOTE | 2017-10-30 15:14 | P.PNURO ---
Subjective Patient symptoms today: Patient noncommunicative. Does not appear to be in any distress. Acevedo catheter was placed for urinary retention. Objective Vital Signs: Vital Signs 10/29/17 16:00 10/29/17 19:00 10/29/17 20:00 Temperature 98.1 F Pulse Rate 65 61 Respiratory Rate 18 18 Blood Pressure 161/88 H 209/112 H Pulse Oximetry 98 10/29/17 20:57 10/29/17 21:00 10/29/17 22:00 Temperature 98.8 F Pulse Rate 82 67 70 Respiratory Rate 18 Blood Pressure 181/120 H Pulse Oximetry 98 10/29/17 23:00 10/30/17 00:00 10/30/17 01:00 Temperature 98.8 F Pulse Rate 74 69 66 Respiratory Rate 18 Blood Pressure 177/91 H Pulse Oximetry 97 10/30/17 02:00 10/30/17 04:00 10/30/17 05:00 Temperature Pulse Rate 64 60 80 Respiratory Rate Blood Pressure Pulse Oximetry 10/30/17 05:35 10/30/17 06:00 10/30/17 07:00 Temperature 98.8 F Pulse Rate 70 62 62 Respiratory Rate 18 Blood Pressure 188/98 H Pulse Oximetry 97 10/30/17 08:00 10/30/17 08:05 10/30/17 09:00 Temperature 98.7 F Pulse Rate 64 67 70 Respiratory Rate 18 Blood Pressure 201/105 H Pulse Oximetry 97 10/30/17 10:00 10/30/17 11:00 10/30/17 12:00 Temperature 97.5 F L Pulse Rate 68 81 88 Respiratory Rate 16 Blood Pressure 194/94 H Pulse Oximetry 99 10/30/17 13:00 Temperature Pulse Rate 106 H Respiratory Rate Blood Pressure Pulse Oximetry Intake & Output 10/29/17 10/30/17 10/30/17 18:59 06:59 18:59 Intake Total 1625 / 1625 1300 / 1300 750 / 750 Output Total 725 / 725 1400 / 1400 Balance 900 / 900 -100 / -100 750 / 750 Weight 70.5 kg 69 kg Intake: IV 1000 / 1000 1000 / 1000 750 / 750 1/2 Normal Saline Inj 1,000 ML 1000 / 1000 1000 / 1000 @ 125 mls/hr IV.CONT .Q8H [facility] Rx#:[id number] Oral 625 / 625 300 / 300 Output: Urine 725 / 725 1400 / 1400 Other: Date of Last Bowel Movement 10/29/17 10/29/17 # Bowel Movements 2 Result Diagrams: 10/30/17 09:49 10/30/17 05:16 Medications and IVs: Active Medications Generic Name Dose Route Start Last Admin Trade Name Freq PRN Reason Stop Dose Admin Acetaminophen 650 mg 10/26/17 13:23 Tylenol PO Q4H PRN Temp > 100.4 Al Hydroxide/Mg Hydroxide 30 ml 10/26/17 13:23 Milk Of Magnesia Liq PO Q12H PRN Mild Constipation Amlodipine Besylate 5 mg 10/30/17 09:00 10/30/17 09:08 Norvasc PO 5 mg DAILY [facility] Administration Atorvastatin Calcium 20 mg 10/26/17 21:00 10/29/17 21:03 Lipitor PO 20 mg HS [facility] Administration Bisacodyl 10 mg 10/26/17 16:05 Dulcolax Supp RECTAL DAILY PRN If no results from Milk of Mag Dextrose 50 ml 10/26/17 13:29 D50w Vial IV.PUSH UNSCH PRN PER HYPOGLYCEMIA PROTOCOL Glucagon 1 mg 10/26/17 13:29 Glucagon Inj OTHER PRN PRN for Hypoglycemia Protocol Heparin Sodium (Porcine) 5,000 units 10/26/17 14:00 10/30/17 13:17 Heparin Inj SQ 5,000 units Q12H [facility] Administration Hydralazine HCl 50 mg 10/30/17 09:00 10/30/17 12:30 Apresoline PO 50 mg TID [facility] Administration Sodium Chloride 1,000 mls @ 125 mls/hr 10/29/17 09:00 10/30/17 11:46 1/2 Normal Saline Inj IV.CONT Not Given .Q8H [facility] Insulin Aspart 0 unit 10/26/17 17:00 10/30/17 12:30 Novolog Insulin Correctional Sugar Inj SQ 1 unit ACHS [facility] Administration Protocol Lactulose 30 ml 10/26/17 13:23 Lactulose Liq PO DAILY PRN SEVERE CONSITIPATION Lisinopril 20 mg 10/30/17 09:00 10/30/17 09:08 Prinivil PO 20 mg DAILY [facility] Administration Mirtazapine 30 mg 10/26/17 21:00 10/29/17 21:03 Remeron PO 30 mg HS [facility] Administration Nitrofurantoin Macrocrystals 100 mg 10/29/17 10:00 10/30/17 09:08 Macrobid PO 100 mg BIDPC [facility] Administration Ondansetron HCl 4 mg 10/26/17 13:23 Zofran Inj IV.PUSH Q6H PRN NAUSEA OR VOMITING Patch Removal 1 each 11/05/17 09:00 Remove Old Patch T-DERMAL Q7D [facility] Patient Own: ( 0 each 10/26/17 19:30 Memantine-Donepezil PO 14/01 E.R.[Namzaric] QPM [facility] 1 Cap) Senna/Docusate Sodium 1 tab 10/26/17 21:00 10/30/17 09:08 Katina-Colace PO 1 tab BID [facility] Administration Sennosides 17.2 mg 10/26/17 13:23 Senokot PO Q12H PRN Moderate Constipation Sodium Chloride 2 ml 10/26/17 11:08 Ns Flush IV.FLUSH PRN PRN FLUSH AFTER USING IV ACCESS Tamsulosin HCl 0.4 mg 10/27/17 11:00 10/30/17 09:08 Flomax PO 0.4 mg DAILY [facility] Administration Objective Remarks: No CVA tenderness Abdomen nondistended. Assessment and Plan - Assessment (1) Ureteral calculi Code(s): N20.1 - Calculus of ureter Status: Acute (2) Renal calculus Code(s): N20.0 - Calculus of kidney Status: Acute (3) Acute UTI Code(s): N39.0 - Urinary tract infection, site not specified Status: Acute - Plan Urologic impression: 1. Multiple small right distal ureteral calculi causing mild to moderate right hydronephrosis which should pass spontaneously. 2. Multiple nonobstructing right renal calculi with the largest involving the upper pole measuring just over 3 cm 3. Urinary tract infection 4. Urinary retention of indeterminate etiology Recommendations: 1. Continue to strain all urine 2. Continue with indwelling Acevedo catheter 3. Will order a follow-up KUB study to reassess stone status. 4. Will eventually require a full urodynamics evaluation to better assess bladder function.
--- NOTE | 2017-10-30 20:50 | XR ---
EXAM DATE: 10/30/2017 8:40 PM EDT AGE/SEX: 77 years / Female INDICATIONS: Abdominal pain. Known right renal calculi seen on CT. CLINICAL DATA: This is the patient's subsequent encounter. Patient reports that signs and symptoms h ave been present for 4 - 6 days and indicates a pain score of 10/10. MEDICAL/SURGICAL HISTORY: . Renal disease. Diabetes. Cerebrovascular disease. Anemia, dementia. None. COMPARISON: [facility] – [place], [place] ABDOMEN & PELVIS W/O CONTRAST, 10/26/2017. . FINDINGS: Mild gaseous dilatation of portions of the colon. There is no free air. No abnormal mass or organomeg hermelinda is seen. The known right renal calculi are not well visualized and appear partially obscured by o verlying bowel gas and stool. A moderate scoliosis of the thoracic and lumbar spine with degenerative change. Overlying electrocardiogram leads are present.. CONCLUSION: 1. The known right renal calculi are not well visualized and are partially obscured by overlying bow el gas and stool. 2. Mild dilatation of portions of the colon most characteristic of a mild ileus. Electronically signed by: Vipin Wilson MD 10/30/2017 8:49 PM EDT
[2017-10-30] MEDS: Mirtazapine 15 MG Tablet PO SCH (20:53)
[2017-10-31] MEDS: Heparin - SQ 10,000 UNITS/ML Vial SQ SCH ×2 (02:13→15:45)
[2017-10-31] MEDS: Sodium Chloride 0.45 % Inj 1,000 ML IV.CONT SCH ×2 (02:14→10:45)
[2017-10-31] MEDS: Lisinopril 20 MG Tablet PO SCH (08:16)
[2017-10-31] MEDS: amLODIPine 5 MG Tablet PO SCH (08:16)
[2017-10-31] MEDS: Nitrofurantoin Monohydrate-Macrocrystal 100 MG Capsule PO SCH ×2 (08:16→18:06)
[2017-10-31] MEDS: Insulin NovoLOG Aspart Correctional Sugar Inj SQ SCH ×4 (08:16→20:50)
[2017-10-31] MEDS: hydrALAZINE 50 MG Tablet PO SCH ×3 (08:16→18:06)
[2017-10-31] MEDS: Senna/Docusate Sodium 8.6/50 MG Tablet PO SCH ×2 (08:16→20:50)
--- NOTE | 2017-10-31 11:31 | P.PNFP ---
Subjective Interval history: No acute events overnight. Patient's blood pressures were better controlled over the last 24 hours. Continues to have adequate urinary output through her Acevedo that is benign in appearance. She was noted to have some abdominal distention today. Nurse reports a small bowel movement earlier this morning. Results - Labs Result diagrams: 10/30/17 09:49 10/30/17 05:16 Abnormal lab results 10/30/17 10/30/17 10/30/17 Range/Units 11:42 17:44 20:49 POC Glucose 167 H 302 H 241 H (68-110) mg/dl 10/31/17 Range/Units 07:18 POC Glucose 168 H (68-110) mg/dl - Imaging Impressions Abdomen X-Ray 10/30/17 00:00 CONCLUSION: 1. The known right renal calculi are not well visualized and are partially obscured by overlying bowel gas and stool. 2. Mild dilatation of portions of the colon most characteristic of a mild ileus. Physical Exam Vital signs: Vital Signs 10/30/17 12:00 10/30/17 13:00 10/30/17 14:00 Temperature 97.5 F L Pulse Rate 88 106 H 100 H Respiratory Rate 16 Blood Pressure 194/94 H Pulse Oximetry 99 10/30/17 15:00 10/30/17 16:00 10/30/17 17:00 Temperature 98.4 F Pulse Rate 111 H 106 H 86 Respiratory Rate 16 Blood Pressure 150/70 H Pulse Oximetry 96 10/30/17 18:00 10/30/17 19:00 10/30/17 20:00 Temperature 98.8 F Pulse Rate 96 H 98 H Respiratory Rate 18 16 Blood Pressure 153/82 H Pulse Oximetry 95 10/30/17 21:00 10/30/17 22:00 10/30/17 23:00 Temperature 98.4 F Pulse Rate 93 H 94 H 83 Respiratory Rate 16 Blood Pressure 164/92 H Pulse Oximetry 95 10/31/17 00:00 10/31/17 01:00 10/31/17 02:00 Temperature Pulse Rate 81 81 83 Respiratory Rate Blood Pressure Pulse Oximetry 10/31/17 03:00 10/31/17 04:00 10/31/17 05:00 Temperature 98.2 F Pulse Rate 82 72 75 Respiratory Rate 18 Blood Pressure 138/72 Pulse Oximetry 10/31/17 06:00 10/31/17 07:00 Temperature 98.3 F Pulse Rate 72 79 Respiratory Rate 12 Blood Pressure 179/89 H Pulse Oximetry 99 Intake & Output 10/30/17 10/31/17 10/31/17 18:59 06:59 18:59 Intake Total 1330 / 1330 950 / 950 Output Total 1360 / 1360 550 / 550 Balance -30 / -30 400 / 400 Weight 70 kg Intake: IV 750 / 750 650 / 650 1/2 Normal Saline Inj 1,000 ML 650 / 650 @ 125 mls/hr IV.CONT .Q8H [facility] Rx#:[id number] Oral 580 / 580 300 / 300 Output: Urine 1360 / 1360 Urine Amount (Catheter) 550 / 550 Indwelling Urethral Catheter 550 / 550 Other: Date of Last Bowel Movement 10/31/17 # Incontinent Bowel Movements 1 1 Narrative: GENERAL: Laying in bed, no acute distress, only responds with "ow" CARDIOVASCULAR: Regular rate and rhythm. RESPIRATORY: No accessory muscle use. Clear to auscultation. Breath sounds equal bilaterally. GASTROINTESTINAL: Abdomen is mildly distended. Patient does complain of pain with palpation, however she complains with palpation all over her body. Normoactive bowel sounds. : Acevedo catheter in place with light yellow urine - Urinary Catheter Management Straight Cath placed during this visit: yes, but has since been removed by the nurse Reason for continuing: Not indwelling catheter Insertion date: 10/29/17 Insertion time: 22:50 Removal time: 23:00 Indwelling Urethral Catheter Cath placed during this visit: yes Reason for continuing: Acute urinary retention Insertion date: 10/29/17 Insertion time: 23:10 Assessment and Plan - Assessment (1) Abdominal distention Code(s): R14.0 - Abdominal distension (gaseous) Status: Acute Plan: Patient noted to have abdominal distention on exam today. KUB on 10/30 showed mild dilatation of portions of the colon most characteristic of a mild ileus Repeating KUB today Nurse reported small stool in the morning of 10/31 Will consider Dulcolax suppository pending the results of the KUB (2) Acute UTI Code(s): N39.0 - Urinary tract infection, site not specified Status: Acute Plan: Patient with altered mental status prior to being admitted. UTI on UA. Started on Rocephin in the ED, changed to Zosyn. -Urine culture grew lactobacillus greater than 100,000 colony-forming units -Patient switched to p.o. nitrofurantoin 100 mg twice daily -IV fluids switch to half-normal saline 125ml/hr due to increasing sodium level. We will continue to monitor -DC Zosyn -Many stones on CT, urology recommends analgesics, Flomax, strain urine, follow- up KUB on 10/30 showed the known right renal calculi not well visualized. Was noted to have mild dilatation of portions of the colon most characteristic of mild ileus. (3) Sepsis Code(s): A41.9 - Sepsis, unspecified organism Status: Acute Plan: Resolved. Blood cultures negative to date (4) HTN (hypertension) Code(s): I10 - Essential (primary) hypertension Status: Acute Plan: History of hypertension -Patient's BPs overnight were much better controlled -Lisinopril to 20 mg daily -Clonidine 0.1 mg patch daily -Amlodipine increased to 5 mg daily -Hydralazine 50 mg TID -Continue to monitor (5) Acute kidney injury superimposed on CKD Code(s): N17.9 - Acute kidney failure, unspecified; N18.9 - Chronic kidney disease, unspecified Status: Acute Plan: History of stage III CKD. On admission creatinine 3.95, GFR 13, likely MARLYN superimposed on CKD. -Creatinine continues to down trend with the most recent creatinine of 1.63 -Continue fluids as above (6) Diabetes Code(s): E11.9 - Type 2 diabetes mellitus without complications Status: Acute Plan: History of diabetes. Admitted with glucose 536 but is improved on a sliding scale -NS 125 mL/h -Continue with sliding scale subQ insulin (7) Hyperglycemia Code(s): R73.9 - Hyperglycemia, unspecified Status: Acute Plan: Admitted with glucose greater than 500. 10 units short acting insulin at [facility], 10 units while in ED. -Follow-up plan for diabetes above (8) HLD (hyperlipidemia) Code(s): E78.5 - Hyperlipidemia, unspecified Status: Acute Plan: History of hyperlipidemia -Continue atorvastatin 20 mg p.o. daily (9) Nutrition, metabolism, and development symptoms Code(s): R63.8 - Other symptoms and signs concerning food and fluid intake Status: Acute Plan: Diet: diabetic diet Fluids: 125 mL/hr DVT:heparin 5,000 q12 Full code - Assessment and Plan 77-year-old female with history of CVA and right-sided hemiparesis, diabetes who was admitted with sepsis secondary to UTI. Currently is been transitioned to nitrofurantoin for antibiotic coverage. Has had some elevated blood pressures during this hospitalization but currently well-controlled on p.o. amlodipine, hydralazine, lisinopril as well as a clonidine patch. Acevedo catheter in place that she had some urinary retention, urology follow-up with voiding trial as an outpatient. Has abdominal distention on 10/31 with KUB pending. Once distention/ileus resolves, patient will be safe for discharge (3) Sepsis Qualifiers: Sepsis type: sepsis due to unspecified organism Qualified Code(s): A41.9 - Sepsis, unspecified organism
--- NOTE | 2017-10-31 11:53 | XR ---
EXAM DATE: 10/31/2017 10:50 AM EDT AGE/SEX: 77 years / Female INDICATIONS: Ileus. CLINICAL DATA: This is the patient's subsequent encounter. Patient reports that signs and symptoms h ave been present for 1 week and indicates a pain score of Nonresponsive. MEDICAL/SURGICAL HISTORY: . Renal disease. Diabetes. Cerebrovascular disease. Anemia, dementia. None. COMPARISON: [facility], ABDOMEN 1V KUB, 10/30/2017. . FINDINGS: The examination demonstrates a nonspecific appearing bowel gas pattern. There is no free air seen. There are degenerative changes in the lumbar spine and hips bilaterally. CONCLUSION: Benign-appearing KUB. Electronically signed by: Dereje Horne MD 10/31/2017 11:51 AM EDT
[2017-10-31] MEDS ORDERED: Bisacodyl 10 MG Supp RECTAL ONE (12:03)
--- NOTE | 2017-10-31 14:16 | P.PNURO ---
Subjective Patient symptoms today: Nonverbal. Lying quietly in bed and in no apparent distress. Objective Vital Signs: Vital Signs 10/30/17 15:00 10/30/17 16:00 10/30/17 17:00 Temperature 98.4 F Pulse Rate 111 H 106 H 86 Respiratory Rate 16 Blood Pressure 150/70 H Pulse Oximetry 96 10/30/17 18:00 10/30/17 19:00 10/30/17 20:00 Temperature 98.8 F Pulse Rate 96 H 98 H Respiratory Rate 18 16 Blood Pressure 153/82 H Pulse Oximetry 95 10/30/17 21:00 10/30/17 22:00 10/30/17 23:00 Temperature 98.4 F Pulse Rate 93 H 94 H 83 Respiratory Rate 16 Blood Pressure 164/92 H Pulse Oximetry 95 10/31/17 00:00 10/31/17 01:00 10/31/17 02:00 Temperature Pulse Rate 81 81 83 Respiratory Rate Blood Pressure Pulse Oximetry 10/31/17 03:00 10/31/17 04:00 10/31/17 05:00 Temperature 98.2 F Pulse Rate 82 72 75 Respiratory Rate 18 Blood Pressure 138/72 Pulse Oximetry 10/31/17 06:00 10/31/17 07:00 10/31/17 08:00 Temperature 98.3 F Pulse Rate 72 79 72 Respiratory Rate 12 Blood Pressure 179/89 H Pulse Oximetry 99 10/31/17 09:00 10/31/17 10:00 10/31/17 11:00 Temperature Pulse Rate 88 94 H 109 H Respiratory Rate Blood Pressure Pulse Oximetry Intake & Output 10/30/17 10/31/17 10/31/17 18:59 06:59 18:59 Intake Total 1330 / 1330 950 / 950 Output Total 1360 / 1360 550 / 550 Balance -30 / -30 400 / 400 Weight 70 kg Intake: IV 750 / 750 650 / 650 1/2 Normal Saline Inj 1,000 ML 650 / 650 @ 125 mls/hr IV.CONT .Q8H [facility] Rx#:[id number] Oral 580 / 580 300 / 300 Output: Urine 1360 / 1360 Urine Amount (Catheter) 550 / 550 Indwelling Urethral Catheter 550 / 550 Other: Date of Last Bowel Movement 10/31/17 10/31/17 # Incontinent Bowel Movements 1 1 Result Diagrams: 10/30/17 09:49 10/30/17 05:16 Imaging: Impressions Abdomen X-Ray 10/30/17 00:00 CONCLUSION: 1. The known right renal calculi are not well visualized and are partially obscured by overlying bowel gas and stool. 2. Mild dilatation of portions of the colon most characteristic of a mild ileus. Abdomen X-Ray 10/31/17 00:00 CONCLUSION: Benign-appearing KUB. Reviewed actual KUB images. No definitive stone seen involving the distal right ureter. Phleboliths present. Medications and IVs: Active Medications Generic Name Dose Route Start Last Admin Trade Name Freq PRN Reason Stop Dose Admin Acetaminophen 650 mg 10/26/17 13:23 Tylenol PO Q4H PRN Temp > 100.4 Al Hydroxide/Mg Hydroxide 30 ml 10/26/17 13:23 Milk Of Magnesia Liq PO Q12H PRN Mild Constipation Amlodipine Besylate 5 mg 10/30/17 09:00 10/31/17 08:16 Norvasc PO 5 mg DAILY [facility] Administration Atorvastatin Calcium 20 mg 10/26/17 21:00 10/30/17 20:53 Lipitor PO 20 mg HS [facility] Administration Bisacodyl 10 mg 10/26/17 16:05 Dulcolax Supp RECTAL DAILY PRN If no results from Milk of Mag Dextrose 50 ml 10/26/17 13:29 D50w Vial IV.PUSH UNSCH PRN PER HYPOGLYCEMIA PROTOCOL Glucagon 1 mg 10/26/17 13:29 Glucagon Inj OTHER PRN PRN for Hypoglycemia Protocol Heparin Sodium (Porcine) 5,000 units 10/26/17 14:00 10/31/17 02:13 Heparin Inj SQ 5,000 units Q12H [facility] Administration Hydralazine HCl 50 mg 10/30/17 09:00 10/31/17 12:18 Apresoline PO 50 mg TID [facility] Administration Potassium Chloride 10 meq/ 1,005 mls @ 125 mls/hr 10/31/17 14:00 Sodium Chloride IV.CONT .Q8H3M [facility] Insulin Aspart 0 unit 10/26/17 17:00 10/31/17 12:18 Novolog Insulin Correctional Sugar Inj SQ 1 unit ACHS [facility] Administration Protocol Lactulose 30 ml 10/26/17 13:23 Lactulose Liq PO DAILY PRN SEVERE CONSITIPATION Lisinopril 20 mg 10/30/17 09:00 10/31/17 08:16 Prinivil PO 20 mg DAILY [facility] Administration Mirtazapine 30 mg 10/26/17 21:00 10/30/17 20:53 Remeron PO 30 mg HS [facility] Administration Nitrofurantoin Macrocrystals 100 mg 10/29/17 10:00 10/31/17 08:16 Macrobid PO 100 mg BIDPC [facility] Administration Ondansetron HCl 4 mg 10/26/17 13:23 Zofran Inj IV.PUSH Q6H PRN NAUSEA OR VOMITING Patch Removal 1 each 11/05/17 09:00 Remove Old Patch T-DERMAL Q7D [facility] Patient Own: ( 0 each 10/26/17 19:30 Memantine-Donepezil PO 14/01 E.R.[Namzaric] QPM [facility] 1 Cap) Senna/Docusate Sodium 1 tab 10/26/17 21:00 10/31/17 08:16 Katina-Colace PO 1 tab BID [facility] Administration Sennosides 17.2 mg 10/26/17 13:23 Senokot PO Q12H PRN Moderate Constipation Sodium Chloride 2 ml 10/26/17 11:08 Ns Flush IV.FLUSH PRN PRN FLUSH AFTER USING IV ACCESS Tamsulosin HCl 0.4 mg 10/27/17 11:00 10/31/17 08:16 Flomax PO 0.4 mg DAILY [facility] Administration Objective Remarks: No CVA tenderness Abdomen nondistended. Assessment and Plan - Assessment (1) Ureteral calculi Code(s): N20.1 - Calculus of ureter Status: Acute (2) Renal calculus Code(s): N20.0 - Calculus of kidney Status: Acute (3) Acute UTI Code(s): N39.0 - Urinary tract infection, site not specified Status: Acute - Plan Urologic impression: 1. Likely passage of right distal ureteral calculi 2. Multiple nonobstructing right renal calculi with the largest involving the upper pole measuring just over 3 cm 3. Urinary retention of indeterminate etiology Recommendations: 1. Renal ultrasound to assess for any residual right hydronephrosis 2. Outpatient urodynamics evaluation to better assess bladder function.
--- NOTE | 2017-10-31 15:21 | US ---
EXAM DATE: 10/31/2017 2:59 PM EDT AGE/SEX: 77 years / Female INDICATIONS: Increased lab values. CLINICAL DATA: This is the patient's subsequent encounter. Patient reports that signs and symptoms h ave been present for 1 day and indicates a pain score of 0/10. MEDICAL/SURGICAL HISTORY: . Anemia. Contracture, left elbow. Dementia. Diabetes. Renal disease. Stroke. Urinary tract infection. None. COMPARISON: [facility] – [place], CT ABDOMEN & PELVIS W/O CONTRAST, 10/26/2017. . MEASUREMENTS: Right Kidney:__9.3 x 3.7 x 5.0 cm Left Kidney:__10.4 x 3.6 x 3.7 cm FINDINGS: Right Kidney: Increased echotexture. 7 x 7 x 4 mm nonobstructing stone in the midpole collecting syst em No mass or hydronephrosis. Left Kidney: Increased echotexture. No mass or hydronephrosis. Bladder: Acevedo catheter is present. Bladder decompressed. Other: None. CONCLUSION: 1. . Increased cortical echogenicity in both kidneys characteristic of medical renal disease. 2. Nonobstructing 7 mm stone in the midpole collecting system of the right kidney. 3. Bladder is decompressed with a Acevedo catheter. Electronically signed by: Gael Ly MD 10/31/2017 3:20 PM EDT
[2017-10-31] MEDS: Potassium Chloride Inj 10 MEQ in Sodium Chloride 0.45 % Inj 1,000 ML IV.CONT SCH (17:21)
[2017-10-31] MEDS: Mirtazapine 15 MG Tablet PO SCH (20:51)
[2017-11-01] MEDS: Heparin - SQ 10,000 UNITS/ML Vial SQ SCH ×2 (02:33→13:19)
[2017-11-01] MEDS: Potassium Chloride Inj 10 MEQ in Sodium Chloride 0.45 % Inj 1,000 ML IV.CONT SCH ×2 (02:33→08:21)
[2017-11-01 03:51] VITALS: RESP 16; O2SAT 97
[2017-11-01 08:31] LABS: Hematocrit 35.1 % (35.0-46.0); Hemoglobin 11.7 gm/dL (11.6-15.3); Mean Corpuscular HGB Conc 33.5 % (32.0-36.0); Mean Corpuscular Hemoglobin 29.2 pg (27.0-34.0); Mean Corpuscular Volume 87.3 fL (80.0-100.0); Mean Platelet Volume 8.3 fL (7.0-11.0); Platelet Count 186 th/mm3 (150-450); Red Blood Count 4.01 mil/mm3 (4.00-5.30); Red Cell Distribution Width 14.5 % (11.6-17.2); White Blood Count 9.2 th/mm3 (4.0-11.0)
[2017-11-01] MEDS: Nitrofurantoin Monohydrate-Macrocrystal 100 MG Capsule PO SCH ×3 (08:53→13:28)
[2017-11-01] MEDS: amLODIPine 5 MG Tablet PO SCH ×2 (08:53→11:19)
[2017-11-01] MEDS: hydrALAZINE 50 MG Tablet PO SCH ×3 (08:53→13:19)
[2017-11-01] MEDS: Insulin NovoLOG Aspart Correctional Sugar Inj SQ SCH ×2 (08:54→11:22)
[2017-11-01] MEDS: Lisinopril 20 MG Tablet PO SCH ×2 (08:54→08:58)
[2017-11-01] MEDS: Senna/Docusate Sodium 8.6/50 MG Tablet PO SCH ×2 (08:54→11:19)
[2017-11-01 09:02] LABS: Calcium 8.9 mg/dL (8.5-10.1); Carbon Dioxide 22.3 meq/L (21.0-32.0)
--- NOTE | 2017-11-01 10:32 | XR ---
EXAM DATE: 11/01/2017 10:10 AM EDT AGE/SEX: 77 years / Female INDICATIONS: Abdominal pain. Evaluate for ileus. CLINICAL DATA: This is the patient's subsequent encounter. Patient reports that signs and symptoms h ave been present for 4 - 6 days and indicates a pain score of Nonresponsive. MEDICAL/SURGICAL HISTORY: Diabetes. Stroke. Renal disease. None. COMPARISON: [facility], ABDOMEN 1V KUB, 10/31/2017. . FINDINGS: Some air distention of the colon characteristic of a hypodynamic ileus. No obvious obstruction. No p neumoperitoneum. Dextroscoliosis of the thoracolumbar spine. 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 CONCLUSION: Air throughout the colon characteristic of a hypodynamic ileus. No obstruction. Electronically signed by: Gael Ly MD 11/01/2017 10:30 AM EDT
--- NOTE | 2017-11-01 10:38 | P.PNFP ---
Subjective Interval history: No acute events overnight. Patient's blood pressures remained stable. Patient had one small bowel movement after a suppository was given yesterday. Patient' s abdominal distention improved from previous day. Has maintained adequate urinary output no other concerns overnight. <Bird Ferrell - 11/01/17 11:14> Results - Labs Result diagrams: 11/01/17 07:47 11/01/17 07:47 <Melvin Fox - 11/02/17 11:20> Abnormal lab results 11/01/17 Range/Units 11:16 POC Glucose 162 H (68-110) mg/dl <Melvin Fox - 11/02/17 11:20> Abnormal lab results 10/31/17 10/31/17 10/31/17 Range/Units 11:37 17:46 20:49 Sodium (136-145) meq/L Potassium (3.5-5.1) meq/L Chloride (98-107) meq/L Creatinine (0.50-1.00) mg/dL Estimated GFR (>89) mL/min POC Glucose 169 H 165 H 147 H (68-110) mg/dl Random Glucose (74-106) mg/dL 11/01/17 11/01/17 Range/Units 07:34 07:47 Sodium 146 H (136-145) meq/L Potassium 3.0 L (3.5-5.1) meq/L Chloride 115 H (98-107) meq/L Creatinine 1.46 H (0.50-1.00) mg/dL Estimated GFR 42 L (>89) mL/min POC Glucose 165 H (68-110) mg/dl Random Glucose 162 H (74-106) mg/dL Short CBC 11/01/17 Range/Units 07:47 WBC 9.2 (4.0-11.0) th/mm3 Hgb 11.7 (11.6-15.3) gm/dL Hct 35.1 (35.0-46.0) % Plt Count 186 D (150-450) th/mm3 BMP 11/01/17 07:47 Sodium 146 H Potassium 3.0 L Chloride 115 H Carbon Dioxide 22.3 BUN 15 Creatinine 1.46 H Calcium 8.9 <Bird Ferrell - 11/01/17 10:38> - Imaging Impressions Abdomen X-Ray 10/31/17 00:00 CONCLUSION: Benign-appearing KUB. Abdomen/Bladder Ultrasound 10/31/17 00:00 CONCLUSION: 1. . Increased cortical echogenicity in both kidneys characteristic of medical renal disease. 2. Nonobstructing 7 mm stone in the midpole collecting system of the right kidney. 3. Bladder is decompressed with a Acevedo catheter. <Bird Ferrell B - 11/01/17 10:38> Physical Exam Vital signs: Vital Signs 11/01/17 12:00 11/01/17 13:00 11/01/17 14:00 Pulse Rate 98 H 92 H 94 H <Melvin Fox E - 11/02/17 11:20> Vital Signs 10/31/17 11:00 10/31/17 12:00 10/31/17 13:00 Temperature 98.4 F Pulse Rate 94 H 88 96 H Respiratory Rate 16 Blood Pressure 123/64 Pulse Oximetry 97 10/31/17 14:00 10/31/17 15:00 10/31/17 16:00 Temperature 98.1 F Pulse Rate 90 90 88 Respiratory Rate 14 Blood Pressure 127/70 Pulse Oximetry 97 10/31/17 17:00 10/31/17 18:00 10/31/17 19:00 Temperature Pulse Rate 90 88 86 Respiratory Rate Blood Pressure Pulse Oximetry 10/31/17 20:00 10/31/17 20:32 10/31/17 21:00 Temperature 98.1 F Pulse Rate 84 87 92 H Respiratory Rate 17 Blood Pressure 151/81 H Pulse Oximetry 97 10/31/17 22:00 10/31/17 23:00 10/31/17 23:30 Temperature 98.0 F Pulse Rate 94 H 91 H 97 H Respiratory Rate 18 Blood Pressure 158/70 H Pulse Oximetry 96 11/01/17 00:00 11/01/17 01:00 11/01/17 02:00 Temperature Pulse Rate 88 90 86 Respiratory Rate Blood Pressure Pulse Oximetry 11/01/17 03:00 11/01/17 04:00 11/01/17 05:00 Temperature 98.2 F Pulse Rate 84 84 86 Respiratory Rate 16 Blood Pressure 146/71 H Pulse Oximetry 97 11/01/17 06:00 11/01/17 07:00 11/01/17 08:00 Temperature 97.8 F Pulse Rate 79 38 L 78 Respiratory Rate 16 Blood Pressure 151/74 H Pulse Oximetry 11/01/17 09:00 11/01/17 10:00 Temperature Pulse Rate 86 113 H Respiratory Rate Blood Pressure Pulse Oximetry Intake & Output 10/31/17 11/01/17 11/01/17 18:59 06:59 18:59 Intake Total 400 / 400 200 / 200 Output Total 1500 / 1500 400 / 400 Balance -1100 / -1100 -200 / -200 Weight 69.5 kg Intake: IV 350 / 350 1/2 Normal Saline Inj 1,000 ML 350 / 350 @ 125 mls/hr IV.CONT .Q8H [facility] Rx#:[id number] Oral 50 / 50 200 / 200 Output: Urine 1500 / 1500 400 / 400 Other: Date of Last Bowel Movement 10/31/17 # Bowel Movements 2 <Bird Ferrell 11/01/17 10:38> Narrative: GENERAL: Laying in bed, no acute distress, only responds with "ow" CARDIOVASCULAR: Regular rate and rhythm. RESPIRATORY: No accessory muscle use. Clear to auscultation. Breath sounds equal bilaterally. GASTROINTESTINAL: Abdomen is soft, nontender nondistended -significantly improved from prior exam : Acevedo catheter in place with light yellow urine <Bird Ferrell 11/01/17 11:14> - Urinary Catheter Management Indwelling Urethral Catheter Cath placed during this visit: no <Melvin Fox 11/02/17 11:20> yes <Bird Ferrell 11/01/17 11:29> Reason for continuing: Acute urinary retention <Bird Ferrell 11/01/17 10 :38> Insertion date: 10/29/17 <Bird Ferrell 11/01/17 10:38> Insertion time: 23:10 <Bird Ferrell 11/01/17 10:38> Straight Cath placed during this visit: no <Melvin Fox 11/02/17 11:20> yes, but has since been removed by the nurse <Bird Ferrell 11/01/17 11:29> Reason for continuing: Not indwelling catheter <Bird Ferrell 11/01/17 10 :38> Insertion date: 10/29/17 <Bird Ferrell 11/01/17 10:38> Insertion time: 22:50 <Bird Ferrell - 11/01/17 10:38> Removal time: 23:00 <Bird Ferrell - 11/01/17 10:38> Assessment and Plan - Assessment (1) Acute UTI Code(s): N39.0 - Urinary tract infection, site not specified Status: Acute (2) Sepsis Code(s): A41.9 - Sepsis, unspecified organism Status: Acute (3) HTN (hypertension) Code(s): I10 - Essential (primary) hypertension Status: Acute (4) Acute kidney injury superimposed on CKD Code(s): N17.9 - Acute kidney failure, unspecified; N18.9 - Chronic kidney disease, unspecified Status: Acute (5) Diabetes Code(s): E11.9 - Type 2 diabetes mellitus without complications Status: Acute (6) Hyperglycemia Code(s): R73.9 - Hyperglycemia, unspecified Status: Acute (7) HLD (hyperlipidemia) Code(s): E78.5 - Hyperlipidemia, unspecified Status: Acute <Melvin Fox - 11/02/17 11:20> (1) Abdominal distention Code(s): R14.0 - Abdominal distension (gaseous) Status: Acute Plan: Patient noted to have abdominal distention on exam on 10/31. Repeat KUB on 10/31 showed some areas of questionable ileus. -Patient's abdominal distention is significantly improved on exam on 11/01. Repeat KUB's morning did show signs of ileus, however the setting of improved exam we will proceed with discharge. Patient did have a small bowel movement yesterday (2) Acute UTI Code(s): N39.0 - Urinary tract infection, site not specified Status: Acute Plan: Patient with altered mental status prior to being admitted. UTI on UA. Started on Rocephin in the ED, changed to Zosyn. -Urine culture grew lactobacillus greater than 100,000 colony-forming units -Patient switched to p.o. nitrofurantoin 100 mg twice daily. Will complete a seven-day course on discharge (3) Sepsis Code(s): A41.9 - Sepsis, unspecified organism Status: Acute Plan: Resolved. Blood cultures were negative for 5 days for 1 aerobic blood culture began growing gram-positive cocci. Highly suspect contamination. Will make nursing facility aware on discharge. (4) HTN (hypertension) Code(s): I10 - Essential (primary) hypertension Status: Acute Plan: History of hypertension -Patient's BPs currently well-controlled -Lisinopril to 20 mg daily -Clonidine 0.1 mg patch daily -Amlodipine increased to 5 mg daily -Hydralazine 50 mg TID -Continue to monitor (5) Acute kidney injury superimposed on CKD Code(s): N17.9 - Acute kidney failure, unspecified; N18.9 - Chronic kidney disease, unspecified Status: Acute Plan: History of stage III CKD. On admission creatinine 3.95, GFR 13, likely MARLYN superimposed on CKD. -Creatinine continues to down trend (6) Diabetes Code(s): E11.9 - Type 2 diabetes mellitus without complications Status: Acute Plan: History of diabetes. Admitted with glucose 536 but is improved on a sliding scale -Continue with sliding scale subQ insulin (7) Hyperglycemia Code(s): R73.9 - Hyperglycemia, unspecified Status: Acute Plan: Admitted with glucose greater than 500. 10 units short acting [facility], 10 units while in ED. -Follow-up plan for diabetes above (8) HLD (hyperlipidemia) Code(s): E78.5 - Hyperlipidemia, unspecified Status: Acute Plan: History of hyperlipidemia -Continue atorvastatin 20 mg p.o. daily (9) Nutrition, metabolism, and development symptoms Code(s): R63.8 - Other symptoms and signs concerning food and fluid intake Status: Acute Plan: Diet: diabetic diet Fluids: IV access lost on 10/31. Encourage aggressive p.o. hydration DVT:heparin 5,000 q12 Full code (10) Urinary retention Code(s): R33.9 - Retention of urine, unspecified Status: Acute Plan: Patient developed urinary retention on 10/29. Acevedo catheter was placed and she is continued to have yellow/clear adequate output. Urology recommended continue indwelling Acevedo catheter with a voiding trial/ urodynamic evaluation as an outpatient Renal function continues to improve daily (11) Ureteral calculi Code(s): N20.1 - Calculus of ureter Status: Acute Plan: CT abdomen/pelvis on admission showed a conglomerate of calculi in the right ureterovesical junction with mild to moderate hydronephrosis and hydroureter. Neurology was consulted who recommended Flomax and aggressive IV hydration Follow-up ultrasound showed no signs of hydronephrosis Follow-up KUB showed no signs of calculi Will follow with urology as outpatient <Bird Ferrell - 11/01/17 11:21> - Assessment and Plan Attending note: Patient was seen and examined with the resident on the morning of 11/01/2017. Patient's abdominal exam improved considerably, the x-ray still shows some dilated loops of bowel however patient is moving her bowels. [facility]. Agree with orders as written by resident. Melvin Fox MD 11/02/2017. <Melvin Fox - 11/02/17 11:20> 77-year-old female with history of CVA and right-sided hemiparesis, diabetes who was admitted with sepsis secondary to UTI. Currently is been transitioned to nitrofurantoin for antibiotic coverage. Has had some elevated blood pressures during this hospitalization but currently well-controlled on p.o. amlodipine, hydralazine, lisinopril as well as a clonidine patch. Acevedo catheter in place that she had some urinary retention, urology follow-up with voiding trial as an outpatient. Has abdominal distention on 10/31 with KUB pending. Abdominal distention significantly improved on 11/01. Will discharge back to SNF Disposition: Discharged <Bird Ferrell - 11/01/17 11:29> <Bird Ferrell - Last Filed: 11/01/17 11:21> (3) Sepsis Qualifiers: Sepsis type: sepsis due to unspecified organism Qualified Code(s): A41.9 - Sepsis, unspecified organism <Melvin Fox - Last Filed: 11/02/17 11:20> (2) Sepsis Qualifiers: Sepsis type: sepsis due to unspecified organism Qualified Code(s): A41.9 - Sepsis, unspecified organism <Bird Ferrell B - Last Filed: 11/01/17 11:21> (3) Sepsis Qualifiers: Sepsis type: sepsis due to unspecified organism Qualified Code(s): A41.9 - Sepsis, unspecified organism <Melvin Fox E - Last Filed: 11/02/17 11:20> (2) Sepsis Qualifiers: Sepsis type: sepsis due to unspecified organism Qualified Code(s): A41.9 - Sepsis, unspecified organism
[2017-11-01] MEDS ORDERED: Potassium Chloride 25 MEQ Effervescent Tablet PO ONE (11:02)
--- NOTE | 2017-11-01 11:21 | P.DS ---
<Lyndsay Steward - Last Filed: 11/01/17 10:56> Date of admission: 10/26/17 12:47 Primary care physician: [facility] Brief History from admission: Patient 77-year-old female past history of CKD stage III, CVA, hemiplegia and hemiparesis, IDDM who presents today with altered mental status. Patient is nonverbal following her CVA 21 years ago. Her daughter was present to help provide information, information was also provided by the ED physician. She is found today in her correction with what was reported to be a [place] Coma Scale of 3, sugar over 500, per EMS run report glucose was 595, 10 units of NovoLog was given in the correction. She is also reported to have a UTI. She currently resides at [facility]. Her daughter reports that she has been unable to pee for an undetermined amount time, she has been in the ICU before for UTI. She was not eating yesterday. She is usually constipated, occasionally needs enemas. Sleeps well. Daughter reports is difficult to communicate with her mother, unable to discern any localized pain or other problems. History: Medical CKDIII HLD Anemia Hemiplegia and hemiparesis following infarction affecting nondominant side CVA DM, ID Surgical Left shoulder surgery, for a mass? Family Mother: bone cancer Father: mouth and throat cancer Social EtOH: none Smoking: none Drugs: none Lidia Fournier - daughter. DS: Diagnosis - Discharge Diagnosis (1) Acute UTI Status: Acute (2) Sepsis Status: Acute (3) HTN (hypertension) Status: Acute (4) Acute kidney injury superimposed on CKD Status: Acute (5) Diabetes Status: Acute (6) Hyperglycemia Status: Acute (7) HLD (hyperlipidemia) Status: Acute (8) Nutrition, metabolism, and development symptoms Status: Acute DS: Medications - Discharge Medications Prescriptions: hydralazine 50 mg PO TID 30 Days #90 tab lisinopril 20 mg PO DAILY 30 Days #30 tab nitrofurantoin macrocrystal 100 mg PO BID 2 Days #4 cap tamsulosin 0.4 mg PO DAILY 30 Days #30 cap DS: Summary Hospital Course: Patient was admitted for sepsis with UTI. Patient was started on Rocephin in the ED, changed to Zosyn. Culture grew lactobacillus so antibiotics were changed to nitrofurantoin 100 mg BID. Patient has 2 days of antibiotic left of [address] of abdomen showed two urinary stones and urology was consulted. She was started on flomax and follow-up US and KUB showed one stone had passed and no hydronephrosis. She also had an MARLYN on her CKD with admission creatine 3.95. Given bolus and maintenance fluids. Cr 1.46 on discharge. During her hospital stay, patient was hypertensive and home lisinopril was increased to 20mg and additional hydralazine 50mg TID was added. Patient was also hyperglycemic on admission but resolved during her stay with insulin sliding scale. Patient had urinary retention requiring placement of Acevedo cath. Urology cleared patient to be sent home with Acevedo and voiding study outpatient. Patient had some abdominal distension KUB on 10/31 showed mild ileus and suppository was given. Physical exam on 11/01 much improved and patient discharged to SNF. Blood cultures grew Gram + cocci on day 5 one vial highly suspicious for contaminant. Vitals within normal limits and no WBC elevation. No signs of sepsis on day of discharge. - Time Spent with Patient Total time spent providing and/or coordinating discharge services: Less than 30 minutes - Quality: VTE Deep Vein Thrombosis/Pulmonary Embolism Present on Admission: No Exam Vital signs: Vital Signs 10/31/17 11:00 10/31/17 12:00 10/31/17 13:00 Temperature 98.4 F Pulse Rate 94 H 88 96 H Respiratory Rate 16 Blood Pressure 123/64 Pulse Oximetry 97 10/31/17 14:00 10/31/17 15:00 10/31/17 16:00 Temperature 98.1 F Pulse Rate 90 90 88 Respiratory Rate 14 Blood Pressure 127/70 Pulse Oximetry 97 10/31/17 17:00 10/31/17 18:00 10/31/17 19:00 Temperature Pulse Rate 90 88 86 Respiratory Rate Blood Pressure Pulse Oximetry 10/31/17 20:00 10/31/17 20:32 10/31/17 21:00 Temperature 98.1 F Pulse Rate 84 87 92 H Respiratory Rate 17 Blood Pressure 151/81 H Pulse Oximetry 97 10/31/17 22:00 10/31/17 23:00 10/31/17 23:30 Temperature 98.0 F Pulse Rate 94 H 91 H 97 H Respiratory Rate 18 Blood Pressure 158/70 H Pulse Oximetry 96 11/01/17 00:00 11/01/17 01:00 11/01/17 02:00 Temperature Pulse Rate 88 90 86 Respiratory Rate Blood Pressure Pulse Oximetry 11/01/17 03:00 11/01/17 04:00 11/01/17 05:00 Temperature 98.2 F Pulse Rate 84 84 86 Respiratory Rate 16 Blood Pressure 146/71 H Pulse Oximetry 97 11/01/17 06:00 11/01/17 07:00 11/01/17 08:00 Temperature 97.8 F Pulse Rate 79 38 L 78 Respiratory Rate 16 Blood Pressure 151/74 H Pulse Oximetry 11/01/17 09:00 11/01/17 10:00 Temperature Pulse Rate 86 113 H Respiratory Rate Blood Pressure Pulse Oximetry Intake & Output 10/31/17 11/01/17 11/01/17 18:59 06:59 18:59 Intake Total 400 / 400 200 / 200 Output Total 1500 / 1500 400 / 400 Balance -1100 / -1100 -200 / -200 Weight 69.5 kg Intake: IV 350 / 350 1/2 Normal Saline Inj 1,000 ML 350 / 350 @ 125 mls/hr IV.CONT .Q8H [facility] Rx#:[id number] Oral 50 / 50 200 / 200 Output: Urine 1500 / 1500 400 / 400 Other: Date of Last Bowel Movement 10/31/17 # Bowel Movements 2 Narrative: GENERAL: Laying in bed, no acute distress, only responds with "ow" CARDIOVASCULAR: Regular rate and rhythm. RESPIRATORY: No accessory muscle use. Clear to auscultation. Breath sounds equal bilaterally. GASTROINTESTINAL: Abdomen is soft, nontender nondistended -significantly improved from prior exam : Acevedo catheter in place with light yellow urine Results Procedures completed during hospitalization: none Labs on day of discharge: Labs from last 24 hours 11/01/17 11/01/17 11/01/17 07:47 07:47 07:34 WBC 9.2 RBC 4.01 Hgb 11.7 Hct 35.1 MCV 87.3 MCH 29.2 MCHC 33.5 RDW 14.5 Plt Count 186 D MPV 8.3 Sodium 146 H Potassium 3.0 L Chloride 115 H Carbon Dioxide 22.3 Anion Gap 9 BUN 15 Creatinine 1.46 H Estimated GFR 42 L POC Glucose 165 H Random Glucose 162 H Calcium 8.9 10/31/17 10/31/17 10/31/17 20:49 17:46 11:37 WBC RBC Hgb Hct MCV MCH MCHC RDW Plt Count MPV Sodium Potassium Chloride Carbon Dioxide Anion Gap BUN Creatinine Estimated GFR POC Glucose 147 H 165 H 169 H Random Glucose Calcium Preliminary micro results at discharge 10/26/17 23:40 Aerobic Blood Culture - Preliminary Blood - Peripheral gram positive cocci - Impressions ITS Impressions Head CT 10/26/17 11:08 CONCLUSION: 1. Evidence of remote left middle cerebral artery territory infarction with large area of encephalomalacia. There is ex vacuo change involving the left lateral ventricle. 2. Moderate atrophic changes. 3. No definite acute hemorrhage, mass or infarction. . Abdomen/Pelvis CT 10/26/17 12:17 CONCLUSION: 1. A conglomerate of calculi seen of the right ureterovesical junction and causing mild to moderate hydronephrosis and hydroureter. Numerous nonobstructing stones are seen of the right kidney itself, including a very large stone of the upper pole. 2. 17 mm nodule left adrenal gland, nonspecific but statistically is most likely a lipid poor adenoma. If there are any pertinent previous outside facility studies comparison to ensure chronicity is recommended. If there are no pertinent priors, abdomen MRI suggested. 3. Mild atelectasis of the visualized lung bases. 4. Small hiatal hernia. Chest X-Ray 10/26/17 12:46 CONCLUSION: No acute cardiac pulmonary disease. Abdomen/Bladder Ultrasound 10/31/17 00:00 CONCLUSION: 1. . Increased cortical echogenicity in both kidneys characteristic of medical renal disease. 2. Nonobstructing 7 mm stone in the midpole collecting system of the right kidney. 3. Bladder is decompressed with a Acevedo catheter. Abdomen X-Ray 11/01/17 00:00 CONCLUSION: Air throughout the colon characteristic of a hypodynamic ileus. No obstruction. <Melvin Fox E - Last Filed: 11/02/17 11:18> Date of admission: 10/26/17 12:47 Primary care physician: [facility] DS: Diagnosis - Discharge Diagnosis (1) Acute UTI Status: Acute (2) Sepsis Status: Acute (3) HTN (hypertension) Status: Acute (4) Acute kidney injury superimposed on CKD Status: Acute (5) Diabetes Status: Acute (6) Hyperglycemia Status: Acute (7) HLD (hyperlipidemia) Status: Acute DS: Summary - Time Spent with Patient Total time spent providing and/or coordinating discharge services: Exam Vital signs: Vital Signs 11/01/17 12:00 11/01/17 13:00 11/01/17 14:00 Pulse Rate 98 H 92 H 94 H Results Labs on day of discharge: Labs from last 24 hours 11/01/17 11:16 POC Glucose 162 H Preliminary micro results at discharge 10/26/17 23:40 Aerobic Blood Culture - Preliminary Blood - Peripheral gram positive cocci - Impressions ITS Impressions Head CT 10/26/17 11:08 CONCLUSION: 1. Evidence of remote left middle cerebral artery territory infarction with large area of encephalomalacia. There is ex vacuo change involving the left lateral ventricle. 2. Moderate atrophic changes. 3. No definite acute hemorrhage, mass or infarction. . Abdomen/Pelvis CT 10/26/17 12:17 CONCLUSION: 1. A conglomerate of calculi seen of the right ureterovesical junction and causing mild to moderate hydronephrosis and hydroureter. Numerous nonobstructing stones are seen of the right kidney itself, including a very large stone of the upper pole. 2. 17 mm nodule left adrenal gland, nonspecific but statistically is most likely a lipid poor adenoma. If there are any pertinent previous outside facility studies comparison to ensure chronicity is recommended. If there are no pertinent priors, abdomen MRI suggested. 3. Mild atelectasis of the visualized lung bases. 4. Small hiatal hernia. Chest X-Ray 10/26/17 12:46 CONCLUSION: No acute cardiac pulmonary disease. Abdomen/Bladder Ultrasound 10/31/17 00:00 CONCLUSION: 1. . Increased cortical echogenicity in both kidneys characteristic of medical renal disease. 2. Nonobstructing 7 mm stone in the midpole collecting system of the right kidney. 3. Bladder is decompressed with a Acevedo catheter. Abdomen X-Ray 11/01/17 00:00 CONCLUSION: Air throughout the colon characteristic of a hypodynamic ileus. No obstruction. Discharge Plan - Discharge Order Discharge Orders: Discharge Order (Routine); Ordered 11/01/17 Ordered By: Lyndsay Steward - Physicians Team Primary Care Provider: Yisel Jones Clinical Attending Provider: Melvin Fox Other Providers: Kermit Tomlin MD ; [facility],[place]
[2017-11-01 12:26] VITALS: BP 157/91; TEMP 97.7
[2017-11-01] MEDS ORDERED: Potassium Chloride 10 MEQ ER Capsule PO ONE (13:00)
[2017-11-01 14:05] VITALS: PULSE 94
== END 2017-11-01 15:02 ==
LOC: NEPE 10:44 → NEDA 12:47 → NEDH 17:03 → HCIS 10-27 12:42
PROVIDERS: ADMIT Family Medicine; ATTEND Family Medicine